=== PATIENT | male | born 1955 | race Caucasian/White ===

== ENCOUNTER 2021-01-26 17:33 | Inpatient (IN) | payer MEDICARE, OTHER ==
[~2021-01-26] VITALS: Ht 172.7 cm; Wt 98.1 kg
[~2021-01-26 17:33] MED LIST: ALDACTONE50 MG PO; AMLODIPINE-ATO1 EAC2 PO; ASPIRIN325 MG PO; CELECOXIB200 MG PO; CLONIDINE HCL0.1 MG PO; GABAPENTIN300 MG PO; OXYCODONE HCL5 MG PO
--- NOTE | 2021-01-26 19:54 | NUR ---
REPORT RECEIVED FROM Justino LUZ, WILL CONTINUE PLAN OF CARE WHEN PT. ARRIVES.
--- NOTE | 2021-01-26 21:37 | NUR ---
PT ARRIVED TO THE CCU AT 2001 VIA STRETCHER. PT WAS BROUGHT DOWN BY THE METAL ENGRAVER AND WAS ALERT AND ORIENTED WITH IV VANCOMYCIN INFUSING. PT ABLE TO SHUFFLE WALK OVER TO THE CCU BED AND GET ON WITHOUT MUCH ASSISTANCE. PT STATES HE IS FEELING WEAK/PAIN IN HIS RIGHT LEG AT THIS TIME. PT SITUATED ON BED DR. RICHMOND IN AT 2019 TO ASSESS PT AND UPDATE ON PLAN OF CARE. NEW ORDERS GIVEN TO STOP VANCOMYCIN AND HOLD ZOSYN. NEW ORDERS PLACED (SEE EMAR). ORDERED MEDICATIONS ADMINISTERED (SEE MAR). PRN OXYCODONE ADMINSITERED WELL PT STATED HE HAD R HIP/KNEE PAIN THAT WAS AT A 7/10. PT REPORTS NO FURTHER NEEDS AFTER BEING ADMITTED, PT PROVIDED WITH A SNACK AND ICE WATER. CALL LIGHT IN REACH, BED IN LOWEST POSITION IVF AND IV ABX INFUSING, WILL CONTINUE PLAN OF CARE.
--- NOTE | 2021-01-26 21:53 | NUR ---
THIS RN IN TO START SCHEDULED IV ABX AND START SECOND BOLUS OF LR (SEE MAR). PT LAYING IN BED AWAKE AND ALERT. PT REPORTS NO NEEDS AT THIS TIME WHEN ASKED, WILL CONTINUE PLAN OF CARE. CALL LIGHT IN REACH, BED IN LOWEST POSITION IVF AND IV ABX INFUSING ORDERED.
--- NOTE | 2021-01-26 22:21 | NUR ---
THIS RN IN TO CHECK ON PT. PT PLACED ON 2L O2 NC DUE TO SPO2 GOING DOWN TO THE 88-89%. PT STATED HE WAS FEELING A LITTLE OUT OF BREATH WHEN ASKED. PT SPO2 NOW MAINTAINED AT 95% ON 2L O2 NC. PT ALSO GIVEN AN INCENTIVE SPIROMETER AT THIS TIME AND INFORMED ON HOW TO USE IT. PT ABLE TO CORRECTLY USE I.S AFTERWARDS. PT REPORTS NO PAIN AT THIS TIME WHEN ASKED AND REPORTS NO FURTHER NEEDS, WILL CONTINUE PLAN OF CARE. IVF INFUSING ORDERED, BED IN LOWEST POSITION, CALL LIGHT WITHIN REACH.
--- NOTE | 2021-01-26 22:48 | NUR ---
THIS RN IN TO CHECK ON PT IV PUMP WAS ALARMING. SECOND BOLUS OF LR COMPLETE, MAINTENANCE IVF STARTED. PT ALERT AND ORIENTED ON 2L O2 NC AND DENIES HAVING ANY PAIN AT THIS TIME WHEN ASKED. PT REPORTS NO FURTHER NEEDS AT THIS TIME, WILL CONTINUE PLAN OF CARE. CALL LIGHT IN REACH, BED IN LOWEST POSITION, WILL CONTINUE PLAN OF CARE.
--- NOTE | 2021-01-27 00:25 | NUR ---
THIS RN IN TO ASSESS PT. PT LAYING IN BED SLEEPING BUT AWOKE EASILY. PT ON 2L O2 NC, SPO2 AT 94%. IVF INFUSING ORDERED. PT REPORTS NO SHORTNESS OF BREATH OR PAIN AT THIS TIME. PT VITALS TAKEN, ASSESSMENT COMPLETE. PT UNABLE TO VOID AT THIS TIME AND WAS BLADDER SCANNED. 276ML SCANNED AT THIS TIME. BLOOD PRESSURE MAP'S IN THE 60-[address] RICHMOND UPDATED ON PT. CONDITION AT THIS TIME VIA TELEPHONE. NEW ORDERS GIVEN. 500ML'S OF LR TO BE ADMINISTERED AT 500MLS/HR ALONG WITH CHANGING THE RATE OF MAINTENANCE LR IVF TO 150ML/HR AND TO CONTINUE TO MONITOR THE PT'S BP. LR NOW INFUSING AT 500ML/HR ORDERED, WILL CONTINUE PLAN OF CARE. PT ALERT AND ORIENTED LAYING IN BED, 2L O2 INFUSING, SPO2 AT 96%. CALL LIGHT IN REACH, BED IN LOWEST POSITION.
--- NOTE | 2021-01-27 01:38 | NUR ---
THIS RN IN TO CHECK ON PT DUE TO SPO2 IN THE 89%. PT LAYING IN BED ON 2L O2 NC. PT WOKE UP AND SPO2 INC TO 96%. PT REPORTS NO NEEDS AT THIS TIME, OXYGEN LEFT AT 2L O2, PT NOW ON MAINTENANCE IVF. PT DENIES PAIN OR SOB. KNEE REPOSITIONED UNDER PILLOW PER PT'S REQUEST AND PT GIVEN MORE WATER. PT REPORTS NO NEEDS AT THIS TIME, WILL CONTINUE PLAN OF CARE. CALL LIGHT IN REACH, BED IN LOWEST POSITION, IVF INFUSING ORDERED.
--- NOTE | 2021-01-27 02:12 | NUR ---
RESPONDED TO PT CALL LIGHT. PT STATED HE NEEDED TO VOID. PT ASSISTED WITH HIS R LEG. PT ABLE TO SIT DOWN ON SIDE OF BED AND USE URINAL. HR INCREASED TO THE 120'S, RR INCREASED TO THE 30'S, SPO2 MAINTAINED AT 96-98% ON 2L O2 NC. PT STATED HE FELT VERY WEAK AND TIRED DURING THIS TIME, PT ABLE TO VOID 125ML AND WAS HELPED BACK INTO BED. PT DENIES DIZZYNESS STATING HE FELT OUT OF BREATH DUE TO HOW WEAK/TIRED HE FELT. PT ASSISTED BACK INTO BED, R LEG ELEVATED WITH PILLOWS. PT BREATHING STILL LABORED. PT STATES IT IS IMPROVING. SPO2 AT 98%, HR 110, RR AT 28. LUNGS AUSCULTATED AND ARE CLEAR, BUT DIMINISHED IN LOWER RIGHT LOBE. PT DENIES PAIN AT THIS TIME. PT REPORTS NO FURTHER NEEDS AND STATES HE WILL TRY TO SETTLE BACK INTO BED AND REST. PT ASSISTED WITH REPOSITIONING IN BED. WILL CONTINUE PLAN OF CARE. CALL LIGHT IN REACH, BED IN LOWEST POSITION, IVF INFUSING ORDERED, PT ON 2L O2 NC.
--- NOTE | 2021-01-27 02:28 | NUR ---
THIS RN IN TO CHECK ON PT. PT AWAKE IN BED AND STATED HE HAD DROPPED HIS CALL LIGHT. CALL LIGHT PLACED BACK ON BED WITHIN REACH. TEMPERATURE ASSESSED PT STATED HE FELT CHILLS, TEMPERATURE WAS 99.6 F. PT ALSO REPORTED 6/10 PAIN IN HIS R KNEE AND GROIN AREA. PRN OXYCODONE AND TYLENOL ADMINISTERED AT THIS TIME. PT REPORTS HIS WORK OF BREATHING IS IMPROVING. SPO2 AT 98% ON 2L O2 NC. WOB STILL APPEARS LABORED AND IS TACHYPNIC AT 24/MIN. PT REPORTS NO FURTHER NEEDS AT THIS TIME, WILL CONTINUE PLAN OF CARE. CALL LIGHT IN REACH, BED IN LOWEST POSITION, IVF INFUSING ORDERED.
--- NOTE | 2021-01-27 03:29 | NUR ---
THIS RN IN TO CHECK ON PT AND PLACE O2 PROBE BACK ON. PT WAS AWAKE AND ALERT GETTING UP. PT STATED HE NEEDED TO VOID. PT ABLE TO GET OVER TO THE SIDE OF THE BED AND SIT UP. PT ASSISTED WITH GETTING BRIEFS OFF IN ORDER TO USE URINAL. PT HR UP TO THE 120'S, RESPIRATIONS INC TO 30'S, PT MAINTAINED SPO2 AT 96% WHILE ON 2L O2 NC. PT ABLE TO VOID AND WAS ASSISTED BACK INTO BED. PT DENIES LIGHTHEADEDNESS/DIZZYNESS WHEN ASKED AND STATES HE FELT BETTER THIS TIME WHEN COMPARED TO THE PREVIOUS VOID. PT REPORTS HIS PAIN HAS DECREASED TO 4/10, TEMPERATURE ASSESSED AND WAS 100.1, PT DENIES CHILLS OR FEELING WARM AT THIS TIME. NEW BAG IVF HUNG. PT REPORTS NO FURTHER NEEDS AT THIS TIME, WILL CONTINUE PLAN OF CARE. CALL LIGHT IN REACH, BED IN LOWEST POSITION, IVF INFUSING ORDERED.
--- NOTE | 2021-01-27 04:16 | NUR ---
RESPONDED TO PT CALL LIGHT. PT HAD KNOCKED HIS CUP OF WATER OVER WHILE REACHING FOR IT. PT'S WATER CUP REFILLED. PT REPORTS NO FURTHER NEEDS WHEN ASKED, WILL CONTINUE PLAN OF CARE. CALL LIGHT IN REACH, BED IN LOWEST POSITION, IVF INFUSING, PT ON 2L O2 NC, SPO2 AT 95%.
--- NOTE | 2021-01-27 05:11 | NUR ---
THIS RN IN TO CHECK ON PT. PT SLEEPING IN BED BUT AWOKE EASILY, TEMPERATURE ASSESSED AT THIS TIME AND WAS 99.3. PT DENIES PAIN, SOB, OR CHILLS. PT REPORTS NO FURTHER NEEDS AT THIS TIME, WILL CONTINUE PLAN OF CARE. CALL LIGHT IN REACH, BED IN LOWEST POSITION, IVF INFUSING ORDERED.
--- NOTE | 2021-01-27 06:13 | NUR ---
RESPONDED TO PT CALL LIGHT, PT ALERT AND ORIENTED LAYING IN BED. PT STATED THAT HE NEEDED TO VOID. PT ASSISTED TO THE SIDE OF THE BED TO VOID INTO A URINAL. PTS WORK OF BREATHING INCREASED ALONG WITH HIS HR WHICH WENT UP TO THE 110'S 120'S. PT DENIED DIZZYNESS AND STATED HE FELT WEAK. PT VOIDED INTO URINAL AND WAS ASSISTED BACK INTO BED. R LEG ELEVATED ON PILLOW. CELLULITS IS UNCHANGED ON R LEG, R KNEE POST OP SITE UNCHANGED WELL. PT MAINTAINED HIS SPO2 AT 94% ON 2L O2 NC. PT REPORTS NO FURTHER NEEDS AT THIS TIME AND WAS ASSISTED IN BEING REPOSITIONED ON THE BED. IVF INFUSING AT ORDERED RATE, PT ON 2L O2 NC, CALL LIGHT IN REACH, BED IN LOWEST POSITION. WILL CONTINUE PLAN OF CARE.
--- NOTE | 2021-01-27 06:32 | NUR ---
THIS RN IN TO CHECK ON PT. PT LAYING IN BED AWAKE AND ALERT WATCHING TV. ON 2L O2 NC, AND IVF INFUSING. PT ASKED ABOUT PAIN, PT STATED HE WAS STARTING TO HAVE PAIN IN HIS "RIGHT BUTT" AREA THIS TIME RATHER THAN HIS KNEE. TEMPERATURE ALSO ASSESSED AT THIS TIME AND WAS 99.2. PRN OXYCODONE AND TYLENOL ADMINISTERED AT THIS TIME. PT REPORTS NO FURTHER NEEDS WHEN ASKED, WILL CONTINUE PLAN OF CARE. CALL LIGHT IN REACH, BED IN LOWEST POSITION.
--- NOTE | 2021-01-27 07:25 | NUR ---
RECIEVED REPORT FROM LEATHER GOODS MAKER. PT WAS AWAKE LAYING IN BED. PT REPORTS NEEDING TO USE THE RESTROOM. ASSISTED PT UP TO BEDSIDE COMMODE. THEN ASSISTED PT TO CHAIR. LEGS ELEVATED. BLANKET GIVEN. PILLOW SUPORT UNDER LRE. CALL LIGHT WITHIN REACH. WILL CONTINUE TO MONTIOR CLOSELY.
--- NOTE | 2021-01-27 07:30 | NUR ---
PATIENT SHIFT REPORT RECIEVED FROM PURCHASING ENGINEER RN. PATIENT RESTING IN BED AT THIS TIME. PER REPORT PATIENT HAS BEEN TACHYCARDIC MOST OF THE NIGHT WITH SOME BLOOD PRESSURES IN THE 90'S SYSTOLIC AND MAP IN THE 60'S AT TIMES. PATIENT CALLS APPROPRIATELY. WILL CONTINUE TO CLOSELY MONITOR.
--- NOTE | 2021-01-27 08:00 | NUR ---
THIS RN IN TO PATIENT. PATIENT IS RESTING IN THE CHAIR NOW AT THIS TIME AFTER GETTING UP TO THE SIDE OF BED TO USE URINAL. PATIENTS BREATH SOUNDS CLEAR AND DIMINISHED IN LEFT LOWER LUNG. PATIENT REPORTS SOME SOB WITH ACTIVITY AND INCREASED PAIN. PATIENTS RIGHT LEG IS NOTED TO BE RED AROUND THE KNEE. A HEALED/SCABBED INCISION NOTED TO BE MIDLINE DOWN KNEE. SEVERAL SMALL WHITE PUTSTULES NOTED WITH OTHER SCABS NOTED AROUND THE SITE. PATIENTS RIGHT LEG IS WARM TO THE TOUCH SOME EDEMA NOTED IN THE LOWER PORTION OF THE EXTREMITY. PATIENT IS ALERT AND ORIENTED. PATIENT REPORTS HE PREFERS TO GO BY [facility].
--- NOTE | 2021-01-27 08:05 | NUR ---
ASSESSMENT COMPLETE. PT SITTING IN RECLINER AT BEDSIDE. REPORTS SHORTNESS OF BREATH WHEN EXERTED. STANDING CAUSES PAIN AND A SPIKE IN HIS HEARTRATE 120'S AND BEGINS SWEATING. PT EXPRESSED THAT ORAL PAIN MEDICATIONS DID NOT HELP AND PAIN WAS 8/10 AFTER MOVING TO CHAIR. 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 ADMINISTERED 4 MG ZOFRAN BEFORE 2MG IV MORPHINE. LUNGS SOUNDS CLEAR IN UPPER LOBES AND DIMINISTED IN LOWER LEFT LOBE. RLE RED AND WARM TO TOUCH. OUTLINED THE RED AREAS WITH SIGNS OF PUTSTULES CENTRALIZED AROUND THE KNEE. PT REPORTS THAT HE TAKES HOME BLOOD PRESSURE MEDICATIONS AND IS NOT USED TO HAVING BLOOD PRESSURES IN THE 80'S AND 90'S. PT IS ON THE 2L 02 NC. O2 SATS MID 90'S ON OCCASSION DROPS TO LOW 90'S WHEN UP AND MOVING ABOUT. CALL LIGHT WITHIN REACH. WILL CONTINUE TO CLOSELY MONITOR FOR ANY CHANGES.
--- NOTE | 2021-01-27 08:30 | NUR ---
PATIENT COMPLAINING OF PAIN THAT CONTINUES AROUND 8/10 IN HIS LEG WITH NO RELIEF FROM PO PAIN MEDICATIONS THIS AM. GAVE 2MG OF MORPHINE PER ORDERS AND ZOFRAN BECAUSE PATIENT STATES HE HAS HAD NAUSEA IN THE PAST WITH MORPHINE ADMINISTRATION AND HAD TO TAKE NAUSEA MEDICATIONS WITH IT. PATIENTS BREAKFAST ORDERED. PATIENT REPORTS PAIN IS IMPROVED AFTER IV PAIN MEDICATION. ICE PACK PLACED FOR COMFORT. NO OTHER NEEDS AT THIS TIME. WILL CONTINUE TO CLOSELY MONITOR.
--- NOTE | 2021-01-27 09:45 | NUR ---
THIS RN IN WITH MD RICHMOND TO SEE PATIENT. UPDATED ON EPISODES OF OF SOB WITH EXERTION AND PATIENT ON 2L NC. ALSO, UPDATED ON INCISION SITE AND REDDNESS AROUND SITE. SEE NEW ORDERS. NO OTHER NEEDS AT THIS TIME. WILL CONTINUE TO CLOSELY MONITOR.
--- NOTE | 2021-01-27 10:10 | NUR ---
ADMINISTERED LASIX PER NEW NOV ORDER. BEGAN SODIUM BICARB. GAVE PT A SECOND PILLOW UNDER HIS LEG. PATIENT TOLERATED WELL. PAIN IS NOW REPORTED T 2/10 WHEN SITTING IN CHAIR WITH LEG ELEVATED. PT REPORTED NO SHORTNESS OF BREATH WHEN GETTING UP TO USE THE BEDSIDE COMMODE. NO OTHER CONCERNS AT THIS TIME. CALL LIGHT WITHIN REACH. WILL CONTINUE TO MONITOR CLOSELY.
--- NOTE | 2021-01-27 11:23 | NUR ---
STUDENT NURSE INTO CHECK PT. PT WAS ON THE COMMODE HEART RATE ELEVATED 120'S AND A LITTLE SHORT OF BREATH. PT INFORMED THAT HE SHOULD USE TO THE CALL LIGHT WHEN HE NEEDS ASSISTANCE TO USE THE RESTROOM. ASSISTED PT TO BED. IMAGING IN THE ROOM TO DO ECHO. PT'S JUST ARRIVED AND IS AT BED JOANNA WITH THE PT. NO CONCERNS AT THIS TIME. WILL CONTINUE TO MONITOR CLOSELY FOR CHANGES.
--- NOTE | 2021-01-27 12:00 | NUR ---
PT LIVES IN [place] WITH HIS , PARRIS. PT HAD SURGERY 4 WEEKS AND STATES HE HAS CELLULITIS. HE IS UNABLE TO WALK WITH HIS CELLULITI S. STATES HE HAS A RAMP, WC AND, A WALKER. HIS PCP IS MEE ZHAO AND HE USES [facility] IN [place] FOR HIS PHARMACY. WILL ASSIST NEEDED. PT PLANS ON DC TO HOME WHEN CLEARED MEDICALLY.
[2021-01-27] MEDS ORDERED: AMLODIPINE BESYL5 MG PO (12:37)
[2021-01-27] MEDS ORDERED: BENAZEPRIL HCL40 MG PO (12:37)
--- NOTE | 2021-01-27 13:11 | NUR ---
PT DONE WITH ECHO AND REQUESTED TO USE THE RESTROOM. ASSISTED PT TO BEDSIDE COMMODE. PT OXYGEN TOLERATED WELL IN THE UPPER 90'S. PT REPORTS A LARGE AMOUNT OF PAIN AND SCORE OF 8/10. ADMINISTERED ORAL PAIN MEDICATIONS. ASSISTED PT TO SIT IN CHAIR SO HE COULD SIT UP. PT REPORTS THAT "HIS SCIATICA HURTS" AND REQUESTED TO SIT ON A PILLOW IN THE CHAIR. ALSO PLACED A PILLOW BEHIND IHS BACK. FIXED ALL THE CORDS THAT WERE TANGLED AND RETAPED THE IV ON HIS RT HAND. PER PT REQUEST TO EAT LUNCH WITHOUT THE NASAL CANULA THE OXGEN WAS REMOVED. wILL CLOSELY MONITOR OXYGEN CLOSELY FOR ANY HYPOXIA. PT SITTING IN CHAIR EATING LUNCH WITH AT CHAIR SIDE.
--- NOTE | 2021-01-27 14:00 | NUR ---
ASSESSMENT COMPLETE. PT ABLE TO MAINTAIN OXYGEN ON ROOM AIR WHEN AWAKE. PT IS URINATING MORE FREQUENTLY AND USES THE BEDSIDE COMMODE WITHOUT COMPLCATIONS AND TOLERATES WELL. HEART RATE STILL TACHYCARDIA AND IS IN A FIRST DEGREE AV BLOCK. PT HAS FINE CRACKLES IN BOTH LOWER LOBES OF HIS LUNGS. PT SITTING IN CHAIR AND REPORTS NAUSEA AND WAS GIVEN ZOFRAN AND REPORTS FEELING BETTER. GAVE PT OYSTER CRACKERS AND TEA. PT IN CHAIR WITH IN THE ROOM. NO CONCERNS AT THIS TIME. WILL CONTINUE TO MONITOR CLOSELY. CALL LIGHT WITHIN REACH.
--- NOTE | 2021-01-27 15:08 | NUR ---
PT RESTING IN THE CHAIR WITH LEGS ELEVATED. AT CHAIR SIDE. PT IS SLEEPING WITH EYES CLOSES. PT MAINTAING OXYGEN AT 94% WITH ROOM AIR. HEART RATE IS IN THE LOW 100'S. JUST FINISHED WITH PHYSICAL THERAPY. NO CONCERNS AT THIS TIME. Zenia CONTINUE TO MONITOR CLOSELY. CALL LIGHT WITHIN REACH.
--- NOTE | 2021-01-27 15:13 | NUR ---
MED REC COMPLETE
--- NOTE | 2021-01-27 17:02 | NUR ---
PT VISITOR JUST STTEPPED OUT FOR A BRIEF MOMENT. ASSISTED PT UP TO THE BEDSIDE COMMODE. PT HEART RATE BECAME ELEVATED AND WAS IN THE 110'S. OXYGEN MAINTAINED IN THE MID 90'S. ASSISTED PT BACK TO CHAIR. PT REPORTS NAUSEA MEDICINE HELPED AND SNACKING ON CRACKER. PT REQUESTED HOT TEA. PT SITTING IN BED DAUGHTER JUST CAME IN ROOM. CALL LIGHT WITHIN REACH. NO CONCERNS OR QUESTIONS AT THIS TIME. WILL CONTINUE TO MONITOR CLOSELY FOR CHANGES.
--- NOTE | 2021-01-27 17:09 | NUR ---
ANSWERED PT CALL LIGHT. PT REQUESTED TO GET INTO BED. ASSISTED PT INTO BED. PT IS WEAK ON THE RIGHT SIDE AND IS A STAND BY ASSIST. PT USED A WALKER AND IS ABLE TO ADJUST HIMSELF IN BED. PLACED A PILLOW UNDER THE RIGHT SIDE OF PT. PLACED OXYGEN BACK ON PT WHILE SLEEP. ASLEEP PT OXYGEN SATS DROP TO UPPER 80'S TO LOW 90'S. PLACED PT ON 1.5L OXYGEN NASAL CANULA. WHILE AWAKE PT MAINTAINS OXYGEN SATURATION OF MID TO UPPER 90'S ON ROOM AIR. TRANSFER TOLERATED WELL. PT LAYING IN BED WITH EYES CLOSED HEAD OF BED ELEVATED. PILLOW UDDER RIGHT SIDE AND RIGHT LEG. NO OTHER CONCERNS AT THIS TIME. CALL LIGHT WITHIN REACH. WILL CONTINUE TO MONITOR CLOSELY.
--- NOTE | 2021-01-27 17:50 | NUR ---
ANSWER PT CALL LIGHT. PT REUQESTED HELP TO USE THE BEDSIDE COMMODE. PT TOLERATED WELL WITHOUT COMPLICATIONS. ASSISTED PT BACK TO BED. PT HAS PILLOW UNDER RIGHT SIDE. PT REPORTED IT HELPS WITH SCIATICA SINCE ITS HARD TO ROLL OVER." PT DRANK CHAMOMILE TEA IN HOPES HE WILL BE ABLE TO RELAX THIS EVENING. PT RESTING IN BED. HEAD ELEVATED. GLASSES ON. CALL LIGHT WITHIN REACH. NO OTHER CONCERNS AT THIS TIME. WILL CONTINUE TO MONITOR CLOSELY.
--- NOTE | 2021-01-27 18:50 | NUR ---
ANSWERED CALL LIGHT. PT REQUESTED HELP UP TO USE THE BEDSIDE COMMODE. ASSISTED PT BACK TO BED. GAVE PT A WARM BLANKET. OXYGEN MAINTAINED AT UP 90'S UP MOVING AND HEART RATE WAS IN MED 110'S ON MOVING. PT CALLED AND PT TALKING ON THE PHONE. NO OTHER CONCERNS AT THIS TIME. CALL LIGHT WITHIN REACH. WILL CONTINUE TO MONITOR CLOSELY.
--- NOTE | 2021-01-27 19:41 | NUR ---
REPORT RECEIVED FROM DAY SHIFT, PT RESTING IN BED WITH EYES CLOSED. RR 22, HR 110.
--- NOTE | 2021-01-27 21:30 | NUR ---
HS MEDS GIVEN, OXYCODONE GIVEN FOR PAIN.
--- NOTE | 2021-01-27 22:07 | NUR ---
IN TO HELP PT UP TO BSC TO VOID THEN BACK TO BED. HR UP TO 120'S WHILE UP. TEMP RECHECKED IS 99.5.
--- NOTE | 2021-01-28 00:05 | NUR ---
PT CALLS TO USE BSC TO VOID, ASSESSMENT DONE. BACK TO BED. DENIES NEED FOR PAIN MEDICATION. LUNGS CLEAR/DIM IN BASES.
--- NOTE | 2021-01-28 02:15 | NUR ---
PT CALLS TO USE BSC. UP TO COMMODE TO VOID AND BACK TO BED. PT SEEMS TO BE GETTING MORE SOB EACH TIME HE GETS UP, WITH RECOVERY TIME APPROX 5 MINUTES ONCE HES BACK IN BED. HR ALSO WENT UP TO 130'S WHILE UP AND TOOK LONGER TO GO BACK DOWN TO 120.
--- NOTE | 2021-01-28 03:22 | NUR ---
PT CALLS FOR NAUSEA MEDICINE. 4MG IV ZOFRAN GIVEN. RESTING HR 117.
--- NOTE | 2021-01-28 04:01 | NUR ---
PT CALLS TO GET UP TO BSC THEN TO CHAIR. ASSESSMENT DONE. PT TOLERATED ACTIVITY BETTER THIS TIME, HR REMAINED IN 115'S, NOT SOB THIS TIME. DENIES NEED FOR PAIN MEDS, STATES NAUSEA IS BETTER. CALL LIGHT IN LAP.
--- NOTE | 2021-01-28 05:39 | NUR ---
UP TO BSC, BACK TO CHAIR. HR LOWER THAN LAST TIME HE WAS UP, NOW 113. STILL SLIGHTLY SOB WHEN UP. REQUESTS PAIN MEDICATION, 5MG OXYCODONE GIVEN.
--- NOTE | 2021-01-28 07:27 | NUR ---
CALL TO DR RICHMOND TO DISCUSS PAIN/NAUSEA. ORDER GIVEN FOR PHENERGAN.
--- NOTE | 2021-01-28 07:30 | NUR ---
PATIENT SHIFT REPORT RECIEVED FROM [employer] MAINTENANCE MANAGER RN. PER REPORT PATIENT IS FEELING UNWELL THIS AM AND EXHAUSTED. PATIENT HAS BEEN MORE TACHYCARDIC THIS AM, NUASEATED, AND PAINFUL IN HIS LEG. CALL LIGHT IN REACH AND PATIENT CALLS APPROPRIATELY. HALIE ADAIR CALLED MD FOR PRN NAUSEA MEDICATIONS.
--- NOTE | 2021-01-28 08:30 | NUR ---
PATIENT REPORTS FEELING UNWELL THIS AM. THIS RN IN TO DO ASSESSMENT AND NOTED PATIENTS RIGHT LEG CONTINUES TO BE RED, SWOLLEN, WARM, AND PAINFUL. PATIENT HAS A RED SWOLLEN RASH ACROSS HIS ABD AND NOTED ON UPPER ARMS. PATIENT REPORTS IT IS ITCHY ACROSS HIS ABD. PATIENTS TEMP WAS NOTED TO BE 101.2 ORALLY. MD RICHMOND NOTIFIED. BLOOD CULTURES ORDERED. NO NEW ORDERS AT THIS TIME. WILL CONTINUE TO CLOSELY MONITOR.
--- NOTE | 2021-01-28 09:17 | NUR ---
IN WITH PT. TEMPERATURE REASSESSED AFTER GIVEN TYLENOL. TEMPERATURE 99.2. PLAN OF CARE IS TO CONTINUE WITH ANTIBIOTIC TREATMENT. PT HAS BEEN ON ANTIBIOTICS FOR 48 HOURS. PT REQUESTED TO USE THE BEDSIDE COMMODE. NURSE GOT PT A DIFFERENT CHAIR TO SEE IF THAT WOULD HELP WITH HIS SCIATICA. ASSISTED PT TO CHAIR AND IS CURRENTLY EATING BREAKFAST. PT REPORTS DRY MOUTH. ICE CHIPS OFFERED TO PT. NO OTHER CONCERNS. CALL LIGHT WITHIN REACH. WILL CONTINUE TO MONITOR CLOSELY.
--- NOTE | 2021-01-28 09:50 | NUR ---
RECIEVED REPORT FROM PROCESS IMPROVEMENT ENGINEER NURSE. ANSWERED CALL LIGHT AND PATIENT REQUESTED ASSISTENCE IN GOING TO THE BEDSIDE COMMODE AND GETTING INTO BED. PT REPORTS THE CHAIR IS UNCOMFORTABLE AND BOTHERS HIS SCIATIC NERVE. PT REPORTS "BEING NAUSEOUS AND STRUGGLES TO PUT ANY PRESSURE ON HIS RIGHT LEG. PT RESTING IN BED. PILLOWS UNDER THE RIGHT SIDE. EXTRA PILLOW UNDER THE RIGHT LEG. HEAD OF BED IS ELEVATED.PT OXYGEN SATS IN THE UPPER 90'S AND TOLERATES MOVEMENT WITH LITTLE AMOUNTS OF SHORTNESS OF BREATH. CALL LIGHT WITHIN REACH. WILL CONTINUE TO MONITOR CLOSELY FOR ANY CHANGES.
--- NOTE | 2021-01-28 12:15 | NUR ---
PATIENT BACK IN THE CHAIR AT THIS TIME. GAVE PRN PAIN EDICATION AND NAUSEA MEDICATION. PHYSICAL THERAPY WILL COME BACK TO SEE PATIENT AFTER ABOUT 1 HOUR FROM PAIN MEDICATION ADMINISTRATION. PATIENT AGREEABLE TO PLAN OF CARE. NO OTHER NEEDS AT THIS TIME. WILL CONTINUE TO CLOSELY MONITOR.
--- NOTE | 2021-01-28 15:10 | NUR ---
CALLED MD TO UPDATE THAT PATIENT SPIKED A FEVER OF 102.2 ORALLY. NO NEW ORDERS EXCEPT TO GO AHEAD AND TREAT WITH TYLENOL. STAFF DO NOT NEED TO DO BLOOD CULTURES AT THIS TIME SINCE THEY WERE DONE THIS AM.
--- NOTE | 2021-01-28 15:20 | NUR ---
TYLENOL GIVEN FOR FEVER. PATIENT RESTING WITH HIS DAUGHTER AT THE BEDSIDE. UPDATED ON PLAN OF CARE. NO OTHER QUESTIONS AT THIS TIME. WILL CONTINUE TO CLOSELY MONITOR.
--- NOTE | 2021-01-28 15:38 | NUR ---
IN TO GIVE PT ANTIOBIOTIS. PT REPORTS "SOME OF THE ITCHING HAS SUBSIDED BUT HIS STOMACH IS STILL ITCHY." DAUGHTER IS IN THE ROOM WITH HIM. PT FACE APPEARS TO BE FLUSHED STILL AND TEMPERATURE RECHECKED AND IS 102.2. ONLY RECIEVED TYLENOL 30 MINUTES AGO. WILL CONTINUE TO CLOSELY MONITOR TEMPERATURES. TELESALES PROFESSIONAL FROM [employer] IS ALSO AT HIS SIDE AND TALKING ABOUT SCRIPTURE. PT IS AWAKE AND ORIENTED AND IS SMILING AND LAUGHING. PT SITING IN CHAIR WITH LEGS ELEVATED. CALL LIGHT WITHIN REACH. WILL CONTINUE TO MONITOR CLOSELY.
--- NOTE | 2021-01-28 16:17 | NUR ---
PT ASSESSMENT COMPLETE. PT IS IN VISITING WITH DAUGHTER AND THE [employer] OF THE [facility] IN [place]. PT HAD SPIKED A TEMPERATURE AGAIN TODAY AND WAS RECHECKING. TEPERATURE HAD DROPPED TO 100.0. RASH ON PATIENTS STOMACH IS NOTICIABLE ON THE SIDES. PATIENT REPORTS THAT THOSE AREAS HAVE ITCHED SO THE REDNESS MAY HAVE BEEN FROM HIM. HE IS ALERT AND ORIENTED AND TALKING. HIS OXYGEN SATURATIONS HAVE NOT DROPPING BELOW MID 90'S WHILE TALKING. DENIES SHORTNES OF BREATH. PAIN IS CURRENTLY AT A 2/10 AND DENIES ANY NEEDS AT THIS TIME. WILL CONTINUE TO MONITOR CLOSELY FOR CHANGES. CALL LIGHT WITHIN REACH.
--- NOTE | 2021-01-28 17:53 | NUR ---
PT RECIEVED DINNER AND NURSE STUDENT BROUGHT TO PT. RECHECKED THE PT TEMPERATURE 99.1. SLOWLY TRENDING DOWNWARD, SHOULD BE MONITORED. PT IS AT BEDSIDE AND REPORTS THAT SHE WILL BE SPENDING THE NIGHT WITH HER . REPLACED THE ICE IN THE [employer] MACHINE AND REPLACED ON THE PATIENTS RIGHT KNEE. PT DENIES SHORTNESS OF BREATH. PT SITTING IN THE CHAIR WITH LEGS ELEVATED. ICE PACK REPLACED UNDER HIS RIGHT BOTTOM AND PILLOW UNDER THE RIGHT LEG. NO OTHER CONCERNS AT THIS TIME. CALL LIGHT WITHIN REACH. WILL CONTINUE TO MONITOR CLOSELY.
--- NOTE | 2021-01-28 18:50 | NUR ---
ASSESSMENT COMPLETE. PT HAS BEEN ON ROOM AIR AND MAINTAINS OXYGEN SATS MID TO UPPER 90S WHEN GETTING UP TO USE THE COMMODE. ASSISTED PT IN USING BEDSIDE COMMODE. PT BEDDING WAS STRIPPED DOWN AND CHANGED. PT HAD A BED BATH WHILE SITTING IN THE CHAIR. PT TOLERATED WELL. WHEN PT ARRIVED PT USED WALKER WITH STAND BY ASIST INTO THE RESTROOM TO CHANGE HIS UNDER PANTS. PT REPORTS "STOMACH AND LOWER LEG BEING ITCHY." REMINDED PT TO USE SPIROMETRY AT WHICH HE WAS ABLE TO ET THE METER TO 1750. RLE IS TIGHT AND HEATED TO TOUCH AND KNEE AREA IS VERY SENSITIVE. WHILE PT IS UP MOVING THE HEART RATE WAS IN THE 120'S AND OXYGEN IN THE MID TO UPPER 90'S. ORDERED PT LUNCH. ASSITED PT BACK TO CHAIR. IS IN THE ROOM WITH PT. PT SITTING IN CAHIR WITH LEGS ELEVATED AND ICE PACK UNDER HIS BOTTOM TO HELP WITH SCIATICA. NO OTHER CONCERNS AT THIS TIME. WILL CONTINUE TO MONITOR CLOSELY.
--- NOTE | 2021-01-28 19:01 | NUR ---
CALL LIGHT ANSWERED. PT REQUESTED HELP GETTING TO THE COMMODE AND WOULD LIKE TO GET BACK INTO BED WHEN HE IS DONE. PT TOLERATED MOVE WELL. PILLOW UNDER THE PATIENT'S BACK AND NO PILLOW UNDER HIS LEG. CRYOCUFF REPLACED ON THE RIGHT LEG AND CIRCUMFIRENCE OF CALF AND KNEE HAVE BEEN PARKED. PT REPORTS GETTING COLD CHILD. TAKING TEMPERATURE 99.4. WILL CONTINUE TO MONITOR CLOSELY FOR CHANGES. CALL LIGHT WITHIN REACH.
--- NOTE | 2021-01-28 19:30 | NUR ---
SHIFT REPORT RECIEVED. PT TEMP IS CURRENTLY 101.0; PT IS DROWSY ALTHOUGH RESPONSIVE AND APPROPRIATE. 500MG PO TYLENOL ADMNISTERED. PT'S IS IN ROOM AT BEDSIDE.
--- NOTE | 2021-01-28 20:06 | NUR ---
PT HAD AN EPSIODE OF DESATURATION TO 78% PER MONITOR. 2L NC APPLIED. PT RECOVERED TO 97-98%. WILL CONTINUE TO MONITOR.
--- NOTE | 2021-01-28 21:20 | NUR ---
CALL IN TO DR DONOHUE. TEMP CONTINUES TO BE ELEVATED. CURRENT ORAL TEMP IS 102F. PT APPEARS FLUSHED AND HAS OCCASIONAL SHIVERING. NO NEW ORDERS; WILL CONTINUE TO MONITOR.
--- NOTE | 2021-01-28 22:01 | NUR ---
IN ROOM TO HANG CLINDAMYCIN. PT WAS SLEEPING BUT AWAKES TO STAFF IN ROOM. TEMP CURRENTLY 101.9F. PT'S IN RECLINER AT BEDSIDE. FRESH ICE WATER PROVIDED FOR BOTH PT AND HIS . CALL LIGHT WITHIN REACH.
--- NOTE | 2021-01-28 23:45 | NUR ---
CALL LIGHT ANSWERED. SBA TO BSC; 300ML CLEAR YELLOW URINE NOTED. PT REPORTS PAIN IS IMPROVED. AXILLARY TEMP 99.7F. LUNG SOUNDS CLEAR. UNCHANGED MARKED AREAS ON RT LEG/ABD. DENIES NEEDS AT THIS TIME. CALL LIGHT WITHIN REACH. PT'S IN ROOM
--- NOTE | 2021-01-29 02:01 | NUR ---
CHECKED ON PT. PT IS AWAKE; ORAL TEMP CURRENTLY 101.7F. 500MG PRN TYLENOL ADMINISTERED ALONG WITH 5MG OXYCODONE PER PT REQUEST. PT STATES THAT HE FEELS HE DOESNT NEED ZOFRAN AT THIS TIME (ALONG WITH OXYCODONE). CALL LIGHT WITHIN REACH. NO FURTHER NEEDS AT THIS TIME.
--- NOTE | 2021-01-29 03:30 | NUR ---
CHECKED ON PT; PT APPEARS TO BE SLEEPING; EYES CLOSED, EVEN BREATHING NOTED. NO APPARENT SIGNS OF DISTRESS.
--- NOTE | 2021-01-29 04:32 | NUR ---
CALL LIGHT ANSWERED. SBA TO BSC. 400ML CLEAR YELLOW URINE. LUNG SOUNDS CLEAR, RT LEG REDNESS WITHIN MARKED BOUNDARIES, CMS INTACT, VSS. PT IS MORE ALERT AND STATES THAT HE FEELS "SO MUCH BETTER THAN LAST NIGHT". PAIN IN RT LEG IS WELL CONTROLLED WITH PRN MEDS HOWEVER MOBILITY IN RT LEG REMAINS REDUCED. PT DENIES FURTHER NEEDS AT THIS TIME. CALL LIGHT WITHIN REACH.
--- NOTE | 2021-01-29 05:57 | NUR ---
CHECKED ON PT D/T O2 SAT 85%. PT HAD REMOVED NC FROM NOSE. PT RECOVERED IMMEDIATELY WHEN NC WAS REPLACED. SBA TO BSC. PT'S WORK OF BREATHING INCREASED UPON RETURN TO BED HOWEVER SPO2 96% ON 2LNC. CURRENT ORAL TEMP 101.0F 0600 [address] HUNG. CALL LIGHT WITHIN REACH. NO FURTHER NEEDS AT THIS TIME
--- NOTE | 2021-01-29 07:24 | NUR ---
RECIEVED REPORT FROM THE UNDERCOATER. PT IS AWAKE AND ALERT SITTING IN BED. HEAD OF BED ELEVATED. IS AT THE BEDSIDE. PT REQUESTS COFFEE. PT REPORTS NO PAIN AT THIS TIME AND HE SLEPT WELL. NO OTHER CONCERNS AT THIS TIME. CALL LIGHT WITHIN REACH. WILL CONTINUE TO MONITOR.
--- NOTE | 2021-01-29 07:45 | NUR ---
PATIENT SHIFT REPORT RECIEVED FROM ATTACHER RN. PATIENT RESTING IN BED AT THIS TIME. PATIENT CALLS APPROPRIATELY. WILL CONTINUE TO CLOSELY MONITOR.
--- NOTE | 2021-01-29 08:15 | NUR ---
MD DONOHUE IN TO SEE PATIENT. PATIENT RESTING IN BED. PATIENT STATES "I FEEL BETTER THIS MORNING" PATIENTS FEVER IS GONE AT THIS TIME. PATIENTS KNEE CONTINUES TO BE RED BUT REMAINS WITHIN OUTLINED AREAS. PATIENTS RIGHT LEG IS WARM TO THE TOUCH. MD DONOHUE SPOKE WITH PATIENT ABOUT PLAN OF CARE. NO FURTHER QUESTIONS AT THIS TIME. WILL ENCOURAGE PATIENT TO GET UP AND START MONVING FOR THE DAY. WILL CONTINUE TO CLOSELY MONITOR.
--- NOTE | 2021-01-29 08:17 | NUR ---
ASSESSMENT COMPLETE. DOCTOR IN TO SEE PT. PT REPORTS "HAVING A GOOD NIGHT REST A FEELS GOOD THIS MORNING." ASSISTED PT UP TO THE RESTROOM WITH WALKER AND STAND BY ASSIST. PT HAD A BEDBATH WASHED HIS FACE, BRUSHED, HIS TEETH, AND CHANGED GOWN. TOLERATED MOVEMENTS WELL. SOME SHORTNESS OF BREATH AND TACHYNEA. MEASURED RIGHT LEG. CALF IS AT 40 CM CIRCUMFERNCE AND KNEE IS AT 46.5 CM AND REDUCTION OF 1 CM FROM YESTERDAY. PT RASH ON STOMACH IS VERY PROMANANT AND PT REPORTS IT BEING ITCHY THIS MORNING. PT EPORTS NO BOWEL MOVEMENT IN TWO DAYS BUT HAS PASSED GAS. REMOVED NASAL CANULA AND PT OXYGEN AT 98% ON ROOM AIR. REPLACED PT LEADS FOR TELEMETRY WHILE GETTING CHANGED FOR THE DAY. TEMPERATURE WAS TAKEN DURING ASSESSMENT AND DOES NOT HAVE A FEVER 98.3. WILL CONTINUE TO MONITOR FOR SIGNS OF FEVER. BREAKFAST HAS ALREADY BEEN ORDER AND IS AT BEDSIDE WITH PT. PT IN CHAIR WITH LEGS ELEVATED. BEDDING CHANGED. NO OTHER CONCERNS AT THIS TIME. CALL LIGHT WITHIN REACH. WILL MONITOR PT CLOSELY FOR CHANGE.
--- NOTE | 2021-01-29 10:51 | NUR ---
ASSSISTED PT TO THE RESTROOM. PT TOLERATED WELL. PRAMOD WESLEY IN TO SEE PT. INFORM PT SHE WOULD LIKE TO TAKE SOME FLUID OFF OF THE PT KNEE TO SEND OFF FOR TESTING. PT RECIEVED NEW MEDCATION AND PRN MORPHINE A PROPHALATIC FOR PAIN. PRAMOD WESLEY ASPIRATED 130 ML FROM THE RIGHT KNEE. PT REPORTS NO COMPLICATION JUST THE FEELING OF PRESSURE. PT IS ABLE TO MOVE KNEE MORE SINCE THE REMOVAL OF FLUID. PT HAS A BAND AIDS ON THE RIGHT OUTER PORTION OF THE KNEE. PT HAS NO FEVER AT THIS TIME. TEMPERATURE IS 98.6. PT IS SITTING IN CHAIR WITH LEGS ELVATED. WILL CONTINUE TO MONITOR CLOSEY FOR CHANGES. CALL LIGHT WITHIN REACH. NO CONCERNS AT THIS TIME.
--- NOTE | 2021-01-29 12:19 | NUR ---
ANSWERED CALL LIGHT. PT REQUESTED ASSISTANCE TO THE RESTROOM. STA WITH WALKER TO THE RESTROOM. PHYSICAL THERAPY CAME IN WHILE PT IN REST ROOM. PT WORKING WITH PHYSICAL THERAPY WALKING. TOLERATING WELL. NO CONCERNS AT THIS TIME.
--- NOTE | 2021-01-29 12:36 | NUR ---
PT ASSESSMENT COMPLETE. PT JUST FINISHED WITH PHYSICAL THERAPY AND WAS SITTING IN CHAIR WITH LEGS ELEVATED. JUST LEFT AND SAID DAUGHTER WILL BE COMING UP. PT WALKED A TOTAL OF 200 FT AND WHEN OXYGEN LEVELS WERE CHECKED HE WAS AT 97%. HEART RATE HAS NOT BECOME ELEVATED MORE ON EXTERTION AND STAY IN THE LOW 100'S TO MID 90'S. PT REPORTS "FEELING MUCH BETTER TODAY AND CAN MOVE LEG MORE WITH THE FLUID GONE." PT HAS NOT HAD A BOWEL MOVEMENT IN TWO DAYS AND PT REPORTS PASSING GAS. BLOTCHY RED RASH APPEARS TO REMAIN ON STOMACH. PT REPORTS THAT IS DOES NOT ITCH. KNEE IS STILL RED AND SWOLLEN AND WAM TO THE TOUCH. PT DOES NOT REPORT ANY WORSE PAIN IN THE LEG. PT EATING LUNCH. NO OTHER CONCERNS AT THIS TIME. CALL LIGHT WITHIN REACH. WILL CONTINUE TO MONITOR CLOSELY.
--- NOTE | 2021-01-29 14:02 | NUR ---
PT SITTING IN CHAIR WITH LEG ELEVATED. DAUGHTER CAME INTO ROOM AND SITTING BY CHAIR. CRYOCUFF REPLACED AND PILLOW READJUSTED. ICE WATER REPLACED. PT DOES NOT HAVE FEVER TEMPERATURE AT 98.5. ASSISTED PT TO USE RESTROOM AND BACK TO CHAIR WITH SBA WITH WALKER. NO COMPLICATIONS OR CONCERNS AT THIS TIME. CALL LIGHT WITHIN REACH. WILL CONTINUE TO MONITOR CLOSELY.
--- NOTE | 2021-01-29 14:59 | NUR ---
NURSE IN TO START PT ANTIBIOTICS. PT SON IN LAW IN VISITING. PT REPORTS PAIN 11/09. OFFERED PAIN MEDICINE. PT REQUESTED ONE OXYCODONE TO GET ON BOARD BEFORE HE GETS UP TO USE THE BATHROOM. TOOK PILLOW OUT FROM BEHIND PT LEG TO HAVE IT STRETCH OUT A LITTLE BIT. PT SAYS" HE FEELS PRETTY GOOD WITH NO NEEDS" CALL LIGHT WITHIN REACH. NO CONCERNS AT THIS TIME. WILL CONTINUE TO MONITOR CLOSELY.
--- NOTE | 2021-01-29 17:17 | NUR ---
BROUGHT PT DINNER. ASSISTED PT WITH PUT LEG OF CHAIR DOWN SO HE COULD SIT UP AND EAT. IS AT SIDE WITH A GUEST TRY. PT REPORTS "NO SHORTNESS OF BREATH OR NAUSEOUSNESS." OXYGEN LEVELS AT 97% ON ROOM AIR, HEARTS RATE IN THE LOW 90'S. PT DENIES THE NEEDS FOR PAIN MEDICATIONS. PAIN RATED AT 2/10. NO OTHER CONCERNS AT THIS TIME. CALL LIGHT WITHIN REACH. WILL CONTINUE TO MONITOR CLOSELY.
--- NOTE | 2021-01-29 18:39 | NUR ---
IN TO ASSIST PT. IV IN LEFT HAND WAS LEAKING. REDRESSED IV AND FLUSHED WITHOUT COMPLICATION. PT REQUESTED ASSISTENCE TO THE RESTROOM. WHEN FINISHED PT DID NIGHT ROUTINE WASHED FACE, SHAVED, BRUSHED TEETH. ASSISTED PT BACK TO BED WITH STAND BY ASSIST WITH WALKER TO BED. PT LAYING IN BED WITH HEAD OF BED ELEVATED TO 30 DEGREES. PT HAS A RASH ON HIS ARMS STOMACH AND CHEST. BLOOD PRESSURE CUFF IS AT THE BED SIDE. RASH ON UPPER ARMS ARE INTCHING AND RED. BLOOD PRESSURES HAVE BEEN IN THE 120 TO 120 WITH MAP IN THE 70 AND 80 TODAY. NO SPEIKES IN FVER AND PATIENT IS HANDLING MORE MOVEMENT WITHOUT COMPLICATION OR OXYGEN DROPS. PT REQUESTED TO HAVE CRYOCUFF OFF FOR A LITTLE WHILE BECAUSE HE GETS COLD WILL IT ON AND MAY NOT SLEEP WELL WITH IT ON. CRYOCUFF AT BED SIDE. PILLOW UNDER HIS FOOT BUT NOT UNDER THE KNEE. NO OTHER QUESTIONS OR CONCERNS AT THIS TIME. PT WILL BE NPO AT MIDNIGHT. CALL LIGHT WITHIN REACH. WILL CONTINUE TO MONITOR CLOSELY.
--- NOTE | 2021-01-29 19:10 | NUR ---
REPORT GIVEN TO [employer] TESTER WATER RNS. UPDATED ON PLAN OF CARE FOR NPO AT MIDNIGHT AND SURGERY TOMORROW AFTERNOON. INSTRUCTIONS TO HOLD LOVENOX TONIGHT. PATIENT BACK TO BED AT THIS TIME. WILL CONTINUE TO CLOSELY MONITOR.
--- NOTE | 2021-01-29 19:37 | NUR ---
REPORT RECEIVED FROM [facility]. CARE ASSUMED BY SN AT THIS TIME.
--- NOTE | 2021-01-29 20:30 | NUR ---
IN TO ASSESS PATIENT. PATIENT COMPLAINS OF 4/10 RIGHT KNEE PAIN. PATIENT GIVEN PAIN MEDICAITON. TEMP 100.6. PATIENT GIVEN IBUPROFEN. PATIENT RESPONDING APPROPRIATELY. PATIENT ABLE TO TRANSFR AND AMBULATE WITH MINIMAL ASSISTANCE. PATIENT ASSISTED TO THE BATHROOM. VOIDED 300MSL. PATIENT ASSISTED INTO BED AND REPOSITIONED. RIGHT LOWER LEG AND RIGHT HIP ELEVATED WITH PILLOWS. KRYO CUFF PLACED UNDER RIGHT KNEE. PATIENT OXYGEN SATURATION 95% ON ROOM AIR. HR REMAINS AROUND 100, ELEVATES TO 120 WITH AMBULATION. PATIENT HAS NO OTHER COMPLAINTS AT THIS TIME. CALL LIGHT IN PLACE. IN THE ROOM.
--- NOTE | 2021-01-29 22:00 | NUR ---
PATIENT ASLEEP IN BED. OXYGEN SATURTION DECREASING TO 85% ON ROOM AIR. OXYGEN APPLIED TO PATIENT AT 2 LPM VIA NASAL CANNULA. PATIENT SATURATION 94% ON 2 LPM. HR REMAINS AT 100. PATIENT HAS NO COMPLAINTS AT THIS TIME.
--- NOTE | 2021-01-29 23:30 | NUR ---
IN TO ASSIST PATIENT TO BATHROOM. PATIENT HAS COMPLAINTS OF NAUSEA. PATIENT TRANSFERED AND AMBULTED WITH LITTLE ASSISTANCE. PATIENT STATES THAT PAIN IN HIS KNEE HAS DECREASED. PATIENT ASSISTED TO BED. MEDICATION FOR NAUSEA GIVEN. TEMP 99.2. HR REMAINS AT 100. OXYGEN SATURATION 92% ON 2LPM VIA NC. PATIENT HAS NO COMPLAINTS AT THIS TIME.
--- NOTE | 2021-01-30 02:30 | NUR ---
CALLED INTO PATIENTS ROOM DUE TO CONCERNS OF CONGESTION IN THE LUNGS. RESPIRATORY ASSESSMENT PERFORMED. LUNG SOUNDS CLEAR. OXYGEN SATURATION 94% ON 2LPM VIA NC. PATIENTS HR REMAINS IN THE 80'S. PATIENT STATED " GOOD, I JUST WANTED TO MAKE SURE THAT THEY ARE FINE FOR SURGERY". PATIENT HAD NO OTHER COMPLAINTS AT THIS TIME.
--- NOTE | 2021-01-30 03:58 | NUR ---
IN TO ASSIST PATIENT TO THE BATHROOM. PATIENT ABLE TO TRANSFER AND AMBULATE WITH MINIMAL ASSISTANCE. PT RATES KNEE PAIN 2/10 AND STATES THAT NAUSEA IS GONE. HR REMAINS IN THE 80'S. RESPIRATIONS EVEN AND UNLABORED. OXYGEN SATURATION 100% ON 2LPM VIA NASAL CANNULA. TEMP 97.9. PATIENT HAS NO OTHER COMPLAINTS AT THIS TIME.
--- NOTE | 2021-01-30 05:21 | NUR ---
ASSISTED PATIENT TO THE BATHROOM. PATIENT STATES THAT LYNDON FEELS MUCH BETTER THIS MORNING. PATIENT AMBULTED WITH STAND BY ASSIST. PATIENT ASSISTED TO BED. LEG AND HIP ELEVATED WITH PILLOWS. CRYOCUFF IN PLACE. PATIENT HAS NO OTHER COMPLAINTS AT THIS TIME.
--- NOTE | 2021-01-30 07:30 | NUR ---
REPORT RECEIVED FROM NIGHTSHIFT RN, WILL CONTINUE PLAN OF CARE.
--- NOTE | 2021-01-30 08:24 | NUR ---
THIS RN IN TO ASSESS PT AND ADMINISTER ORDERED MEDICATIONS. PT INITTIALLY LAYING IN BED ALERT AND ORIENTED ON ROOM AIR, IVF INFUSING ORDERED. PT DENIES ANY PAIN OR SHORTNESS OF BREATH AT THIS TIME WHEN ASKED. DR. DONOHUE IN ROOM MOMENTARILY TO ASSESS PT AND UPDATE ON PLAN OF CARE. ORDERED MEDICATIONS ADMINISTERED AT THIS TIME (SEE NOV). PT ASSESSED, LUNGS ARE CLEAR, PULSES STRONG, KNEE STILL REDDENNED BUT HAS IMPROVED, ABDOMEN ALSO REDDENED AT THIS TIME. BOWEL TONES PRESENT. AFTER ASSESSMENT PT NEEDED TO VOID AND WAS ABLE TO GET UP TO GO TO THE BATHROOM USING HIS FRONT WHEEL WALKER. PT ABLE TO GET BACK INTO BED WELL AFTER VOIDING. PT NOW LAYING IN BED AND REPORTS NO FURTHER NEEDS. IVF INFUSING ORDERED, CRYO CUFF REFILLED AND IN PLACED, CALL LIGHT IN REACH, BED IN LOWEST POSITION, WILL CONTINUE PLAN OF CARE.
--- NOTE | 2021-01-30 08:58 | NUR ---
THIS RN IN TO CHECK ON PT. PT LAYING IN BED AWAKE AND ALERT ON PHONE WITH AT BEDSIDE. PT REPORTS NO NEEDS AT THIS TIME WHEN ASKED, SCD'S IN PLACE, CRYOCUFF IN PLACE, IVF INFUSING, BED IN LOWEST POSITION,CALL LIGHT IN REACH. WILL CONTINUE PLAN OF CARE.
--- NOTE | 2021-01-30 09:00 | NUR ---
Spoke with pt and his . Pt waiting to go to surgery. states they have all equipment needed as he mother was ill. Both cont. to plan on dc to home when cleared medically.
--- NOTE | 2021-01-30 09:22 | NUR ---
THIS RN IN TO HANG A NEW BAG OF MAINTENANCE IVF. PT LAYING IN BED AWAKE AND ALERT ON HIS PHONE, AT BEDSIDE. PT REPORTS NO PAIN AND NO NEEDS AT THIS TIME WHEN ASKED. WILL CONTINUE PLAN OF CARE. CALL LIGHT IN REACH, BED IN LOWEST POSITION, IVF INFUSING ORDERED.
--- NOTE | 2021-01-30 09:36 | NUR ---
THIS RN IN TO CHECK ON PT. PT AWAKE AND ALERT LAYING IN BED. PT STATED HE WAS HAVING NASEAU AND ASKED FOR PRN MEDICATION. PRN ZOFRAN ADMINISERED AT THIS TIME FOR NAUSEA. PT REPORTS NO FURTHER NEEDS AT THIS TIME WHEN ASKED AND DENIES PAIN. CALL LIGHT IN REACH, BED IN LOWEST POSITION, IVF INFUSING ORDERED, WILL CONTINUE PLAN OF CARE.
--- NOTE | 2021-01-30 10:09 | NUR ---
THIS RN IN TO CHECK ON PT. PT NEEDED TO GET UP AND VOID. PT ABLE TO GET OUT OF BED WITHOUT ASSISTANCE AND USE FRONT WHEEL WALKER TO GET TO THE BATHROOM TO VOID AND GET BACK. PT REPORTS NO NEEDS AFTERWARDS WHEN ASKED AND WAS HELPED BACK INTO BED. PT NOW LAYING IN BED, AT BEDSIDE. IVF INFUSING ORDERED, BED IN LOWEST POSITION, CALL LIGHT WITHIN REACH, WILL CONTINUE PLAN OF CARE.
--- NOTE | 2021-01-30 10:40 | NUR ---
THIS RN IN TO CHECK ON PT. PT AWAKE AND ALERT LAYING IN BED WITH IN ROOM. OR NURSE IN TO TRANSFER PT FOR HIS SURGERY. PT HANDED OFF TO OR NURSE AT THIS TIME TO CONTINUE PLAN OF CARE.
--- NOTE | 2021-01-30 13:54 | NUR ---
01/30/21 1354 Solange Norman 1344: PT ARRIVES TO PACU VIA STRETCHER AWAKE AND ALERT. VSS, SATS >98% ON 10L VIA FACEMASK. DRESSING C/D/I. YAZAN FLASHING GREEN. SPINAL LEVEL AT L2. SCDS IN PLACE
--- NOTE | 2021-01-30 14:35 | NUR ---
GIOVANY HICKMAN INFORMED ME THAT PT WAS TAKEN TO OR FOR SURGERY. WILL CONTINUE TO FOLLOW UPON HIS RETURN.
--- NOTE | 2021-01-30 15:22 | NUR ---
PT ARRIVED TO UNIT FROM OR AT 1440 AND WAS AWAKE AND ALERT, IVF INFUSING, SCD'S ON, CRYO CUFF ON. PT DENIED PAIN AT THIS TIME AND WAS ON ROOM AIR. REPORT RECEIVED FROM COREMAKER MACHINE'S. SCHEDULED MEDICATION ADMINISTERED AT THIS TIME. PT DENIES PAIN AT THIS TIME WHEN ASKED. PT IS ALERT AND ORIENTED, LEGS ARE STILL NUMB BUT STATES HE CAN FEEL THIS RN TOUCH THEM. PEDAL PULSES STRONG. RIGHT LEG HAS DRESSING IN PLACE, BRACE, AND CRYO CUFF. LEFT LEG HAS AN SCD IN PLACE. PT REPORTS NO FURTHER NEEDS AT THIS TIME WHEN ASKED. GIOVANY HICKMAN IN TO INFORM PT ON LINE PLACEMENT. WILL CONTINUE PLAN OF CARE. CALL LIGHT IN REACH, BED IN LOWEST POSITION, TXA INFUSING, AND GIOVANY HICKMAN IN ROOM WITH PT.
--- NOTE | 2021-01-30 17:08 | NUR ---
THIS RN IN TO CHECK ON PT. PT PICC LINE INSERTED, PT NOW LAYING IN BED AWAKE AND ALERT. PT REPOSITIONED ONTO BED WITH THE HELP OF URBAN PLANNER. PT STARTED ON MAINTENANCE IVF AT THIS TIME. PT REPORTS NO PAIN WHEN ASKED AND STILL REPORTS SOME NUMBNESS IN HIS LEGS FROM THE BLOCK. PEDAL PULSES STRONG, CAP REFILL BRISK, DRESSING UNCHANGED. PT REPORTS NO FURTHER NEEDS AT THIS TIME WHEN ASKED, WILL CONTINUE PLAN OF CARE. CALL LIGHT IN REACH, BED IN LOWEST POSITION. IVF INFUSING ORDERED.
--- NOTE | 2021-01-30 17:53 | NUR ---
THIS RN IN TO CHECK ON PT. PT LAYING IN BED AWAKE AND ALERT TALKING TO . PT STATED HE JUST ORDERED HIS DINNER. PT DENIES PAIN AT THIS TIME AND REPORTS NO NEEDS WHEN ASKED, WILL CONTNINUE PLAN OF CARE.
--- NOTE | 2021-01-30 19:00 | NUR ---
THIS RN IN IN TO ASSESS PT. PT WOUND ASSESSED AT THIS TIME AND SHOWS NO NEW CHANGE OR SIGNS OF BLEEDING. DARCIE BANDAGE, BRACE, AND CYROCUFF IN PLACE. CRYOCUFF HAS BEEN REFILLED WITH ICE. PT DENIES PAIN AT THIS TIME. PT STATES HIS SHEET WAS WET, WHEN ASSESSED PT WAS URINATING AND THEREFORE INCONTINENT, PT STATED HE DID NOT FEEL HIMSELF URINATING. PERICARE DONE ON PT AT THIS TIME, BED CHANGE DONE. PT NOW LAYING IN BED IN NEW LINENS AND A PAD UNDERNEATH. HEMOVAC EMPTIED AT THIS TIME OF 90ML OF SEROUS FLUID. WHEN ASSESSING YAZAN DRESSING IT WAS NOTICED THAT THE LIGHT WAS ORANGE. THIS WAS PASSED ON TO THE NIGHTSHIFT NURSES. PT LAYING IN BED, IVF INFUSING ORDERED, AT BEDSIDE, BED IN LOWEST POSITION, CALL LIGHT IN REACH.
--- NOTE | 2021-01-30 19:11 | NUR ---
PICC INSERTION NOTE: ASKED BY DR. MARCH TO EVALUATE PATIENT FOR POTENTIAL PICC LINE PLACEMENT. PATIENT UNDERWENT SURGERY TODAY FOR AN INFECTION IN RIGHT KNEE. PATIENT AND HIS WERE ABLE TO DISCUSS THIS AND AGREE TO PICC LINE. PATIENT WILL NEED [facility] AB[facility] FOR APPROX 3 MONTHS FOR HIS INFECTION. AFTER REVIEWING THE CHART, NO ABSOLUTE CONTRAINDICATIONS WERE IDENTIFIED. PATIENT'S RIGHT ARM WAS EVALUTED FIRST WITH THE SITE KATHLEEN U/S AND THE CEPHALIC AND THE BASILIC WERE BOTH IDENTIFIED, AND BOTH POTENTIAL CANDIDATES. THE CEPHALIC THE BEST CHOICE A 4FR CATHETER WOULD ONLY CONSUME APPROX 33% OF THE VEIN DIAMETER. STERILE PROCEDURE WAS FOLLOWED FOR PREPARATION OF PATIENT'S RIGHT ARM. IV ACCESS WAS OBTAINED UPON THE INITIAL ATTEMPT, WITH BRISK, DARK, NON PULSATILE BLOOD WAS EASILY RETURNED. GUIDEWIRE WAS EASILY ADVANCED INTO THE CATHETER, FOLLOWED BY THE INTRODUCER. PATIENT'S PICC WAS ADVANCED EASILY UPON THE FIRST ATTEMPT, BUT THE LINE DID NOT SHOW IT WAS IN THE APPROPRIATE POSITION. 2 MORE ATTEMPTS TO ADVANCE THE LINE WERE MADE, BUT BOTH OF THESE ATTEMPTS WERE MET WITH MORE RESISTANCE THAN THE FIRST TIME THE LINE WAS ADVANCED. THE TOURNIQUET WAS THEN RELEASED, AND A FINAL ATTEMPT WAS MADE TO ADVANCE THE LINE WHILE USING THE 3CG TECHNOLOGY. THIS LAST TIME, THE PICC ADVANCED EASILY, AND SHOWED IT TO BE IN OPTIMAL POSITION. A CHEST XRY WAS TAKEN AND THE PICC LOOKS SATISFACTORY FROM THE INITIAL CHEST XRAY IN THE ROOM. APPROX 15-20 MINUTES AFTER THE PICC WAS FINISHED, THE PATIENT WAS NOTED TO HAVE MULTIFOCAL PVCs, WITH SOME SAM OF VTACH. THE PATIENT INITIALLY DENIED FEELING THIS ECTOPY, BUT DID NOTE AN OCCASIONAL FEELING OF "PALPITATIONS." THE PICC WAS INITIALLY AT 0 CM EXPOSED, BUT WHEN THIS ECTOPY WAS NOTED, THE PICC WAS PULLED BACK 3 CM AND AN ADDITIONAL CHEST XRAY WAS TAKEN. THE ECTOPY CALMED DOWN, BUT DID NOT RESOLVE ENTIRELY AFTER ABOUT 45 MINUTES. THE PICC WAS THEN PULLED BACK AN ADDITIONAL 2 CM TO HAVE A TOTAL OF 5 CM EXPOSED. PATIENT'S ECTOPY SINCE HAS CALMED DOWN TO A RARE PVC HERE AND THERE. PATIENT AND HIS WERE UPDATED ON ALL OF THIS AND EXPRESSED UNDERSTANDING. WILL CONTINUE TO MONITOR. REPORT WAS GIVEN TO GIOVANY JORDAN WHO IS CARING FOR THIS PATIENT. PATIENT ENCOURAGED TO ASK QUESTIONS REGARDING HIS PICC LINE AT ANY TIME.
--- NOTE | 2021-01-30 19:30 | NUR ---
REPORT RECEIVED FROM NIKKI ADAIR.
--- NOTE | 2021-01-30 19:45 | NUR ---
IN TO CHECK ON PT AND DO ASSESSMENT. PT REPORTS THAT HE IS REGAINING FEELING IN HIS LEG, REQUESTING PAIN MEDICATION STATES THE PAIN IS RETURNING AND HE WANTS TO KEEP ON TOP OF IT. CMS INTACT, RIGHT LEG HAS BRACE, ON CRYO CUFF, PICA IN PLACE AND HEMOVAC DRAINED OF 50ML SANGUINOUS FLUID. PT DENIES FURTHER NEEDS.
--- NOTE | 2021-01-30 21:30 | NUR ---
PT HAS BEEN INC URINE, SITTING WITH URINAL BETWEEN LEGS TO CATCH URINE, UNABLE TO FULLY VOID. BLADDER SCAN DONE SHOWS 425ML. PT RELUCTANT TO HAVE A CATHETER, REQUESTS TO KEEP TRYING TO VOID ON HIS OWN.
--- NOTE | 2021-01-30 22:15 | NUR ---
PT SAT ON EDGE OF BED, PUTTING WEIGHT ON LEFT LEG ONLY TO GET INTO A POSITION TO BE ABLE TO VOID. WAS ABLE TO VOID ONLY 50ML URINE.
--- NOTE | 2021-01-30 23:43 | NUR ---
PT WAS ABLE TO VOID 200ML AT A TIME. DENIES NEEDS AT THIS TIME.
--- NOTE | 2021-01-31 02:00 | NUR ---
PT HAS BEEN RESTING WITH EYES CLOSED, RESP EVEN AND UNLABORED.
--- NOTE | 2021-01-31 04:15 | NUR ---
PT CALLED WITH FINDING HEMOVAC PULLED OUT, SANGUINOUS FLUID ON GOWN, BEDDING. ASSISTED PT WITH CLEAING UP AND CHANGING LINENS. UP TO BSC FOR LARGE BM. BACK TO BED. DENIES NEED FOR PAIN MEDS AT THIS TIME, WILL TRY TO SLEEP.
--- NOTE | 2021-01-31 05:30 | NUR ---
CALL TO DR MARCH TO INFORM HIM THAT THE HEMOVAC CAME APART. DISCUSSION ON HOW TO REMEDY. LAB IN WITH PT.
--- NOTE | 2021-01-31 06:00 | NUR ---
HEMOVAC ATTACHED TO WALL SUCTION. PT AWAKE IN BED, NO REQUESTS AT THIS TIME.
--- NOTE | 2021-01-31 07:45 | NUR ---
Update from Rn. Pt kristen de la rosa. Spoke with Dr. Medrano pt plan is to dc to home with IV antibiotics and n discharge.
--- NOTE | 2021-01-31 07:50 | NUR ---
ASSESSMENT COMPLETE. PT RATING RT KNEE PAIN 05/09, GIVEN 10 MG OXYCODONE AND PREMEDICATED W/ ZOFRAN PT STATES PAIN MEDS MAKE HIM NAUSEOUS. LUNG SOUNDS ARE CLEAR, DIM IN BASES, PT DENIES SOB AT REST OR W/ EXERTION. USING URINAL TO VOID AT BEDSIDE, QUANTITY HAS BEEN SUFFICIENT. PT WILL WORK WITH PATIENT THIS AM, PT FEELING SLIGHTLY ANXIOUS ABOUT IT. HEMOVAC REATTACHED BY DR MARCH AND IS NOW FUNCTIONING WELL. YAZAN DRESSING FLASHING ORANGE INDICATING NEED TO BE CHANGED. PT GIVEN MORNING MEDICATIONS. VSS. 1PA W/ FWW, NON WEIGHT BEARING RLE. TOLERATING REGULAR DIET WELL AND HAD LARGE BM THIS AM. UP IN CHAIR NOW, IN ROOM. CALL LIGHT IN REACH. DENIES FURTHER NEEDS.
--- NOTE | 2021-01-31 12:00 | NUR ---
PT UP IN CHAIR EATING LUNCH. WORKED WELL WITH PT THIS AM AMBULATING HALLWAYS. PT IS NOW TOE-TOUCH RLE. 1PA W/ FWW. PT STATES PAIN HAS BEEN WELL CONTROLLED BY OXYCODONE Q4HP. DENIES FURTHER NEEDS. CALL LIGHT IN REACH.
--- NOTE | 2021-01-31 13:00 | NUR ---
PICC DRESSING SATURATED, INSERTION YESTERDAY. DRESSING CHANGED, 5 CM EXPOSED AND 31 CM FOR ARM CIRCUMREFERENCE. EDUCATED PT ON PICC LINE MANAGEMENT. BRISK BLOOD RETURN NOTED. LR NOW INFUSING AT 50 MLS/HR.
--- NOTE | 2021-01-31 14:00 | NUR ---
YAZAN DRESSING CHANGED TO RIGHT KNEE. ACTICOAT SILVER PLACED OVER INCISION, AND YAZAN REINFORCED AROUND EDGES. LIGHT BLINKING GREEN AND ORANGE, APPEARS TO BE SUCTIONING.
--- NOTE | 2021-01-31 14:56 | NUR ---
GIOVANY UNGER IN WITH PT. WILL CHECK BACK LATER
--- NOTE | 2021-01-31 15:40 | NUR ---
PT ARRIVES TO MED SURG FLOOR BY WALKING TO NEW ROOM WITH PT MAKAYLA. PT REPORTS NO PAIN WITH AMBULATION, USES FWW AND TOE TOUCH WB. BRACE IN PLACE OVER DARCIE WRAP, YAZAN FLASHING GREEN AND HEMOVAC IN PLACE. DRESSINGS C/D/I. PICC LINE FLUSHED WIH 10ML SALINE, TURBULENT FLUSH, BRISK BLOOD RETURN. IVF INFUSING WNL. CMS INTACT. CRYO CUFF IN PLACE. PT RESTS IN CHAIR WITH LEGS ELEVATED.2+ EDEMA NOTED IN R KNEE TO TOES, WARM TO TOUCH. WATER REFRESHED, DAUGHTER AT BEDSIDE, ORIENTED TO ROOM.
--- NOTE | 2021-01-31 17:22 | OR ---
[facility] [address], [place] [address] Signed DATE OF OPERATION: 01/30/2021 SURGEON: Kvng Chow MD PREOPERATIVE DIAGNOSIS: Infected right TKR. POSTOPERATIVE DIAGNOSIS: Infected right TKR. PROCEDURE PERFORMED: Removal of right TKR, all components. NURSES SUPERINTENDENT: Thalia Scherer PA-C. Thalia was present and critical for all portions of procedure. BLOOD LOSS: None. TOURNIQUET TIME: 110 minutes. BRIEF HISTORY: Tyson is a 65-year-old gentleman, who was admitted with cellulitis in his right lower extremity on Saturday afternoon. His cellulitis continued to worsen despite triple antibiotics. His blood cultures were initially negative. The patient continued to have worsening knee pain and complete loss of his range of motion as of yesterday compared to 90 degrees of flexion when he came in. The knee was aspirated yesterday and showed clear purulent material and gram-positive cocci. The discussion for a single stage revision today was discussed with the patient, however, once I got into the operating room and got into the knee, I found more pus in the soft tissue, particularly in the thigh medially. We elected then to just go with a 2-stage revision to be safest in terms of getting rid of the infection. After consent, he was taken to the operating room, placed on the operating room table. All downside pressure points were well padded. A well-padded proximal thigh tourniquet was placed on the right knee and the leg was prepped and draped in a standard sterile fashion. The leg was exsanguinated using Esmarch bandage and tourniquet inflated to 275 mmHg. The prior incision was marked out and extended an inch in each direction, taken through skin and subcutaneous tissue. Incision itself was completely healed. The underlying soft tissue, Electronically Signed By: KVNG CHOW MD 01/31/21 1722 PATIENT NAME: TYSON MCBRIDE OPERATIVE REPORT DATE OF : 55 REPORT #: [id number] PHYSICIAN: KVNG CHOW MD PCP: MEE ZHAO NP REPORT IS CONFIDENTIAL AND NOT TO BE RELEASED WITHOUT AUTHORIZATION [facility] [address], [place] [address] Signed particularly the medial soft tissue sleeve was completely full purulent material. There was a small rent in the arthrotomy at the infrapatellar pole. The best of the arthrotomy was completely intact. The arthrotomy was opened up and extended into a mid vastus arthrotomy. The synovium in the anterior and superior parts of the knee was removed as best we could. We removed the polyethylene to allow better flexion. Then, using flexible osteotomes, we went all the way around the femoral component. There was not a great deal of assistance and it was then impacted off the distal femur. The same with the tibia. The flexible osteotomes were taken all the way around the implant. Again, it was relatively easily removed with only some minor spot weld on both come components. The patellar component was removed completely as well. All bony surfaces were curetted and the remainder of the synovium posteriorly in the posterior medial and posterior lateral gutters was removed as best we could again using sharp dissection. The knee was then pulse lavaged using 6 L of antibiotics with a dilute iodine soak in the middle. Once this was accomplished, the antibiotic cement was mixed and made into a femoral and tibial component of sorts and placed in the knee. This allowed good space and about 25 to 30 degrees of motion. We then placed a Hemovac drain and closed the arthrotomy with #1 PDS. The subcutaneous tissue with 0 PDS and the skin with 2-0 nylon interrupted. Wound was dressed with a YAZAN wound VAC dressing and Edmund wrap. He was awakened, taken to the recovery room in satisfactory condition. All sponge, needle, and instrument counts were correct. Kvng Chow MD BA/MODL /[id number] Copies: ~ Electronically Signed By: KVNG CHOW MD 01/31/21 1722 PATIENT NAME: TYSON MCBRIDE OPERATIVE REPORT DATE OF : 55 REPORT #: [id number] PHYSICIAN: KVNG CHOW MD PCP: MEE ZHAO NP REPORT IS CONFIDENTIAL AND NOT TO BE RELEASED WITHOUT AUTHORIZATION
--- NOTE | 2021-01-31 18:50 | NUR ---
DR DONOHUE IN TO SEE PT. SOON TO RECEIVE TRANSFER ORDERS TO MED SURG FLOOR.
--- NOTE | 2021-01-31 19:05 | NUR ---
IN ROOM FOR REPORT, ASSISTED PT BACK TO BED FROM CHAIR. HE HAS CRYOCUFF IN PLACE AND DENIES FURTHER NEEDS. CALL LIGHT IS CLOSE.
--- NOTE | 2021-01-31 20:24 | NUR ---
CALL LIGHT ANSWERED. URINAL EMPTIED. IV PUMP ALARMING, PICC LINE FLUSHED WNL, BRISK BLOOD RETURN. VSS. ICE WATER PROVIDED. pt RATES PAIN 05/09, PRIMARY RN NOTIFIED AND IN ROOM TO ADMINISTER MEDICATIONS.
--- NOTE | 2021-01-31 20:57 | NUR ---
COMPLETED ASSESSMENT AND ADMINISTERED EVENING MEDICATIONS. ALSO ADMINISTERED 2 OXYCODONE FOR PAIN ALONG WITH ZOFRAN IT CAUSES NAUSEA. PT REPORTS NUMBNESS AND TINGLING IN RT FOOT BUT STATES IT MAY GET BETTER AFTER TAKING GABAPENTIN IT FEELS LIKE NERVE PAIN. HEMOVAC AND YAZAN ARE IN PLACE AND GREEN LIGHT IS FLASHING. DRESSING TO R KNEE IS CDI AND DARCIE WRAP IS NOT ON TOO TIGHT. KNEE BRACE IS IN PLACE AND THERE IS ROOM UNDERSTRAPS FOR FINGERS TO EASILY FEEL BELOW. PT LEG IS ELEVATED ON PILLOW WTIH CRYOCUFF IN PLACE. PT HAS REDNESS NOTED TO ABDOMEN WHICH HE STATES HAS BEEN NORMAL D/T THE BACTERIA HE HAS. PT DENIES FURTHER NEEDS. CALL LIGHT IS CLOSE.
--- NOTE | 2021-01-31 21:33 | NUR ---
CALL LIGHT ANSWERED. URINAL EMPTIED. DAUGHETER UP IN CHAIR AT BEDSIDE. pt DENIES ADDITIONAL REQEUSTS.
--- NOTE | 2021-01-31 22:30 | NUR ---
IN ROOM TO START NEXT IV ABX. PT REPORTS PAIN A 4 AT REST WITH INTTERMITTENT SHARP PAIN TO A 6/10. ADMINISTERED MOTRIN AND REFILLED CRYOCUFF WITH ICE. PT STATES HE DOES NOT WANT TO WEAR THE ICE TONIGHT. PT DENIES FURTHER NEEDS. CALL LIGHT IS CLOSE.
--- NOTE | 2021-02-01 00:16 | NUR ---
IV PUMP BEEPING, IT IS NOW INFUSING FINE. PT IS RESTING WITH EYES CLOSED, RR IS EVEN AND NONLABORED. CALL LIGHT IS CLOSE.
--- NOTE | 2021-02-01 02:01 | NUR ---
PT JUST USED URINAL PER BRIGIDO RN. WENT INTO CHECK ON PT AND HE IS ALREADY SLEEPING. RR IS EVEN AND NONLABORED. CALL LIGHT IS CLOSE.
--- NOTE | 2021-02-01 03:16 | NUR ---
EMPTIED 70MLS SANGUINOUS DRAINAGE FROM HEMOVAC, YAZAN DRESSING REMAINS CDI AND IS BLINKING GREEN. SCD ON L LEG AND PT DENIES HAVING A ROLLED UP TOWEL BEHIND HEEL AT NIGHT AND STATES IT TOO UNCOMFORTABLE AND WILL DO DURING THE DAY. PT ALSO REMOVED CRYOCUFF. HE DENIES PAIN AT THIS TIME STATING HE IS ONLY AT A 3/10. IV IS INFUSING FINE THROUGH PICC LINE AND PT DENIES FURTHER NEEDS. CALL LIGHT IS CLOSE.
--- NOTE | 2021-02-01 04:05 | NUR ---
PT CALLED TO HAVE URINAL EMPTIED. HE DENIES FURTHER NEEDS. IV IS INFUSING FINE AND CALL LIGHT IS CLOSE.
--- NOTE | 2021-02-01 06:00 | NUR ---
IN ROOM TO EMPTY URINAL AND ENTER VS, I&O'S. PT HAS A HEADACHE AND TAKES IBUPROFEN AND TYLENOL AT HOME. ADMINISTERED BOTH MEDS PER PT REQUEST. HE DENIES FURTHER NEEDS AT THIS TIME. CALL LIGHT IS CLOSE.
--- NOTE | 2021-02-01 06:35 | NUR ---
PT AMBULATES 1PA FWW TTWB, YAZAN ON R KNEE IS CDI AND HEMOVAC PUT OUT 80MLS TOTAL SEROSANGUINOUS DRAINAGE. HIS RT FOOT HAS 3+ EDEMA WITH GOOD PEDAL PULSES AND CAPREFILL. PT REPORTS SOME N/T IN BOTTOM OF RIGHT FOOT. PT'S PAIN WAS WELL CONTROLLED THROUGH THE NIGHT WITH OXYCODONE AND MOTRIN. PT HAS LEFT SCD IN PLACE AND HAS BRACE ON R LEG. PT REFUSED CRYOCUFF AT WHILE SLEEPING BUT STATES HE WILL WEAR DURING THE DAY. PICC LINE HAS GOOD BLOOD RETURN AND PT HAS LR INFUSING AT 50MLS/HR.
--- NOTE | 2021-02-01 07:15 | NUR ---
THIS RN RECEIVED REPORT FROM CHRISTIAN ADAIR. PT UP TO THE RESTROOM WITH HELP FROM PTS DAUGHTER THIS PT WILL BE BACK TO CHECK ON PT AFTER A BIT
--- NOTE | 2021-02-01 08:49 | NUR ---
THIS RN IN PTS ROOM TO DO MORNING ASSESSMENT AND GIVE MORNING MEDS. PT SITTING UP IN BED AND APPEARS DROWSY THIS AM, PT STATES THAT HE WOKE UP EARLY THIS AM. PT REPORTS THAT HIS PAIN IS 1/10 AT REST THIS AM. PT DOES REPORT SOME PAIN AT INCISION SITE. PT HAS NO OTHER CONCERNS THIS AM. PTS DAUGHTER AT BEDSIDE
--- NOTE | 2021-02-01 10:08 | NUR ---
UP IN CHAIR VITALS TAKEN DOCUMENTED ALONG WITH I&O'S. LINEN CHANGED. ICE REPLACED.
--- NOTE | 2021-02-01 10:29 | NUR ---
this rn provided pt with 10mg of oxy per pt request. pt wants to take pain meds prior to working with physical therapy
--- NOTE | 2021-02-01 12:32 | NUR ---
DURING ROUNDS PATIENT WAS UP IN CHAIR WATCHING TV. FINISHED MEAL HAD BM AND VOIDED. NOTHING ELSE NEEDED
--- NOTE | 2021-02-01 12:43 | NUR ---
DISCUSSED WITH DR DONOHUE, PT MAY NEED OP ANTIBIOTICS OR ANTIBIOTICS IN THE HOME. AWAITING CULTURE AND SENSITIVITY FROM THE LAB.
--- NOTE | 2021-02-01 13:34 | NUR ---
PATIENT UP IN CHAIR. VITALS AND I&O'S DONE AND CHARTED. NOTHING ELSE NEEDED AT THIS TIME
--- NOTE | 2021-02-01 14:55 | NUR ---
PT ALERT, ORIENTED AND VISITING WITH DAUGHTER. PT SITTING IN CHAIR WITH CRYO CUFF ON AND LEGS ELEVATED. PT TOLD ME HIS STORY, SEEMS TO BE DEALING WITH THE SITUATION APPROPRIATELY. HAD GOOD VISIT, DAUGHTER LEAVING SO G.SON COULD VISIT GAVE BLESSING, WILL FOLLOW NEEDED
--- NOTE | 2021-02-01 16:50 | NUR ---
THIS RN IN PTS ROOM TO CHECK ON PT. PT SITTING UP IN CHAIR WITH CRYO CUFF IN PLACE. PT STATES THAT HE GOT SOME GOOD RELIEF FROM THE PAIN MEDS. THIS RN EMTIPED PTS HEMAVAC- 60ML OUT FOR A TOTAL TODAY. PT STATES THAT HE NEEDS NOTHING AT THIS TIME
--- NOTE | 2021-02-01 17:54 | NUR ---
PATIENT VISITING WITH . ALL CHARTING AND VITALS ARE DONE. PATIENT SAYS HE IS SETTLED AND DOESNT NEED ANYTHING FOR NOW
--- NOTE | 2021-02-01 19:03 | NUR ---
IN ROOM FOR REPORT, PT IS AWAKE IN BED. HE DENIES NEEDS AT THIS TIME. CALL LIGHT IS CLOSE.
--- NOTE | 2021-02-01 21:30 | NUR ---
IN ROOM TO ASSESS PT AND ADMINISTER MEDICATIONS. PT REPORTS 7/10 PAIN BUT WOULD LIKE TO WAIT UNTIL IT'S TIME HE CAN HAVE ZOFRAN TO AVOID NAUSEA. PICC LINE HAS GOOD BLOOD RETURN AND PT IS DRINKING WELL AND VOIDING ALOT. AFTER IV ABX ARE COMPLETE WILL FOLLOW ORDER TO SL IV SINCE HE IS TOLERATING PO INTAKE. PICC IS POSITIONAL AND IV BEEPS ALOT KEEPING HIM AWAKE. YAZAN ON KNEE IS CDI AND LIGHT IS FLASHING GREE. HEMOVAC IN PLACE AND DRAINING SEROSANGUINOUS FLUID. CRYOCUFF IS IN PLACE ON R KNEE ALONG WITH BRACE. PT HAS BILAT TEDHOSE ON WELL. PT DENIES FURTHER NEEDS AT THIS TIME. CALL LIGHT IS CLOSE AND IS AT BEDSIDE.
--- NOTE | 2021-02-01 21:53 | NUR ---
IN ROOM TO ADMINISTER 2 OXYCODONE FOR 7/10 PAIN. ALSO ADMINISTER ZOFRAN TO AVOID NAUSEA. PT DENIES FURTHER NEEDS AT THIS TIME. CALL LIGHT IS CLOSE.
--- NOTE | 2021-02-01 23:47 | NUR ---
PT IS RESTING WITH EYES CLOSED, RR IS EVEN AND NONLABORED. CALL LIGHT IS CLOSE.
--- NOTE | 2021-02-02 01:18 | NUR ---
PT IS RESTING WITH EYES CLOSED, RR IS EVEN AND NONLABORED. CALL LIGHT IS CLOSE.
--- NOTE | 2021-02-02 01:25 | NUR ---
CALL LIGHT ON, EMPTIED URINAL, WARM BLANKET PROVIDED, NO FURTHER NEEDS AT THIS TIME
--- NOTE | 2021-02-02 02:43 | NUR ---
URINAL EMPTIED, NO FURTHER NEEDS AT THIS TIME
--- NOTE | 2021-02-02 03:08 | NUR ---
PT IS RESTING WITH EYES CLOSED, RR IS EVEN AND NONLABORED. CALL LIGHT IS CLOSE.
--- NOTE | 2021-02-02 03:49 | NUR ---
IN ROOM TO CHECK ON PT. PT REPORTS A HEADACHE 4/10 AT THIS TIME AND NO PAIN IN R KNEE. ADMINISTERED TYLENOL AND MOTRIN PER PT REQUEST. R KNEE DRESSING REMAINS CDI AND CRYOCUFF IS INPLACE. PT DENIES FURTHER NEEDS AT THIS TIME. CALL LIGHT IS CLOSE.
--- NOTE | 2021-02-02 04:56 | NUR ---
PT CALLED TO HAVE URINAL EMPTIED, HE IS NOW RESTING WITH EYES CLOSED, RR IS EVEN AND NONLABORED. CALL LIGHT IS CLOSE.
--- NOTE | 2021-02-02 06:17 | NUR ---
BLOOD DRAWN AND SENT TO LAB. VS % I&O'S TAKEN, PT DENIES FURTHER NEEDS. CALL LIGHT IS CLOSE.
--- NOTE | 2021-02-02 09:00 | NUR ---
REPORT RECEIVED FROM NIGHT RN AND PT. CARE RESUMED. PT. IS ALERT AND ORIENTED. SITTING UP IN BED WITH AT BEDSIDE. PT. REPORTS MODERATE PAIN IN RT. KNEE AND REQUESTED PAIN MED. BEFORE P.T. RT. KNEE YAZAN DRESSING IS C.D.I. WITH EDIE HOSE, BRACE AND CRYO CUFF IN PLACE. +2 EDEMA PRESENT RLE. IV SITE WNL AND PICC SITE FLUSHES AND RETURNS BLOOD. HEP. LOCKED. DISCUSSED POC AND SAFETY. PT. LEFT RESTING WITH CALL LIGHT IN REACH.
--- NOTE | 2021-02-02 11:28 | NUR ---
PT. UP TO THE CHAIR WITH . DENIES PAIN. HEMOVAC EMPTIED OF 20ML SERISANGUINOUS DRAINAGE. YAZAN DRESSING CDI.
--- NOTE | 2021-02-02 12:59 | NUR ---
PT. AMBULATED WITH 1PA 4 LAPS AROUND THE UNIT AND TOLERATED WELL. DENIES DIZZINESS AND PAIN. SLIGHTLY SOB BUT RECOVERED QUICKLY WHEN RESTING AFTER.
--- NOTE | 2021-02-02 13:18 | NUR ---
PT ALERT, ORIENTED AND JUST RETURNED FROM P.T. MAKAYLA AMBULATING IN HALLWAY. PT IN CHAIR WITH LEGS UP AND CRYOPAK IN USE. RAKEL IN WELL. HAD GOOD VISIT, PT TALKED ABOUT WHAT HIS SYMPTOMS WERE LIKE THAT BROUGHT HIM HERE LONG RECOVERY AHEAD OF PT. HE SEEMS TO HAVE GOOD OUTLOOK. ENCOURAGED TO TAKE ONE DAY AT A TIME. GAVE BLESSING, WILL FOLLOW NEEDED
--- NOTE | 2021-02-02 15:04 | NUR ---
I ASKED PATIENT IF HE WOULD LIKE TO TAKE A BED BATH AND HE TOLD ME HE TOOK ONE LAST NIGHT. SO I AM GOING TO GO IN AND GIVE ME SOME EXTRA TOWELS AND BODY WASH SO HE CAN TAKE A BED BATH TONIGHT. HIS HELPS HIM.
--- NOTE | 2021-02-02 15:15 | NUR ---
REDDNESS ON LT. LEG AND ABDOMEN ARE NO LONGER PRESENT. PT. DENIES PAIN AFTER AMBULATING WITH P.T.
--- NOTE | 2021-02-02 15:44 | NUR ---
REFILLED PATIENT'S CRYO. PATIENT'S COUSIN IS VISITING.
--- NOTE | 2021-02-02 16:46 | NUR ---
Spoke with Dejon. awaiting cultures to determine antibiotic. Pt may need OP or HH for antibiotics.
--- NOTE | 2021-02-02 18:01 | NUR ---
PT. IS HERE FOR INFECTION RELATED TO RECENT RT. KNEE SURGERY. MINIMAL PAIN, BUT RECEIVED OXYCODONE 2X PRIOR TO P.T. TODAY. PICC IS HEP. LOCKED, FLUSHES WELL AND HAS GOOD BLOOD RETURN. HAS AMBULATED WITH FWW AND TOE TOUCH. TEMP. WAS 99.9F AT 1800 AND SHOULD BE MONITORED. REDNESS AROUND ABD., BACK AND LT. LEG IS NO LONGER PRESENT. PRESENT IN THE ROOM ALL DAY.
--- NOTE | 2021-02-02 21:32 | NUR ---
PT COOPERATIVE WITH ASSESSMENT, ON ROOM AIR, CLEAR LUNGS, FLUSHED FACE, PINK SCATTERED COLORING OVER L ABD, FLANK AND BACK, BARELY PERCEPTIBLE OVER R /LEFT LEGS. R KNEE AREA INCISION SITE YAZAN DRESSING COVERED WITH OPSITE, PUMP VARIES BETWEEN GREEN AND YELLOW LIGHT FLASHING. HEMOVAC WITH SCANT AMOUNT OF SS DRAINAAGE, BRACE IN PLACE, EDIE HOSE AND HEEL PROTECTORS BILAT, SCDS L LEG, EDEMA 2+ R LE, GENERALIZED EDEMA. USES URINAL, MEDICATED WITH OXYCODONE EARLIER PER C/O PAIN. SL LAR AND PICC LINE R ARM PATENT. CALL LIGHT AT HANDS REACH, TOLERATING FLUIDS WELL. WIDE ROOMING IN, NO FURTHER C/O
--- NOTE | 2021-02-02 22:17 | NUR ---
IN TO EMPTY URINAL, NO FURTHER NEEDS
--- NOTE | 2021-02-02 23:44 | NUR ---
EMPTIED PT'S URINAL, HE REPORTS A HEADACHE 4/10 AND STATES HIS R KNEE FEELS BETTER AT 4/10 AT THIS TIME. ADMINISTERED TYLENOL AND MOTRIN FOR PT'S HEADACHE PER HIS REQUEST. PT DENIES FURTHER NEEDS AT THIS TIME. CALL LIGHT IS CLOSE.
--- NOTE | 2021-02-03 02:31 | NUR ---
resting, no further c/o h/a, on room air. call light at bedside. fluids at bedside, no emesis inroom.
--- NOTE | 2021-02-03 04:20 | NUR ---
IN TO GET VITALS, REPLACED CRYO ICE, EMPTIED URINAL AGAIN, NO FURTHER NEEDS AT THIS TIME
--- NOTE | 2021-02-03 05:04 | NUR ---
pT COOPERATIVE, HAS BEEN MEDICATED WITH OXYCODONE, TYLENOL AND MOTRIN PER R KNEE AND H/A PAIN. R KNEE EDEMA PRESENT, YAZAN DRESSING IN PLACE, HEMOVAC WITH 10CC DRAINAGE EARLIER IN SHIFT AND VERY SCANT AMOUNT THIS AM. EDIE HOSE R KNEE BRACE IN PLACE, SCDS L LEG. HEEL PROTECTORS EDIE HOSE IN PLACE. R PICC LINE PATENT, COOP WITH BLOOD DRAWS. SL LAC PATENT. MUCH IMPROVED EDEMA BOTH LE EXCEPT AT R KNEE AREA. MUCH IMPROVED-BARELY PERCEPTIBLE RASH NOTED ON BACK, MUCH IMPROVED, NOT THERE OVER ABD. LEG LATERAL AND BACK BARELY PINK. TOLERATING FLUIDS WELL, NO EMESIS, VOIDING QS. CALL LIGHT AT HANDS REACH, IN ROOM
--- NOTE | 2021-02-03 09:00 | NUR ---
REPORT RECEIVED FROM NIGHT RN AND PT. CARE RESUMED. PT. IS UP TO THE BATHROOM WITH FWW AND TOE TOUCH. TOLERATED WELL. ALERT AND ORIENTED. TOLERABLE MILD PAIN IN RT. KNEE BUT REQUESTED OXYCODONE PRIOR TO P.T. IV SITE FLUSHES WELL. PICC FLUSHES, RETURNS BLOOD AND HEP LOCKED. DRESSING INTACT. RT. KNEE YAZAN DRESSING IS CDI AND FLASHING GREEN. KNEE BRACE, EDIE HOSE BLE, HEMOVAC, AND CRYO CUFF IN PLACE. LUNGS CLEAR. NO SIGNS OF REDNESS ANYMORE ON LT. LEG OR ABDOMEN. PT. AND DISCUSSED POC. LEFT RESTING WITH CALL LIGHT IN REACH.
--- NOTE | 2021-02-03 11:14 | NUR ---
LT. IV SITE DC'D. CATH INTACT AND PT. TOLERATED WELL
--- NOTE | 2021-02-03 11:59 | NUR ---
RAKEL IN WITH PT, CHEERFUL WAITING FOR CULTURES. GAVE ENCOURAGEMENT, WILL FOLLOW NEEDED
--- NOTE | 2021-02-03 12:23 | NUR ---
HE LIKES TO DO HIS BED BATH BEFORE HE GOES TO BED AT NIGHT. HIS HELPED HIM LAST NIGHT. AND HE WILL DO A BED BATH TONIGHT. I AM GOING TO SET IT UP FOR HIM AND HIS .
--- NOTE | 2021-02-03 14:30 | NUR ---
PT. REPORTS 02/06 RT. KNEE PAIN AFTER P.T. ADMIN. NORCO. PICCO DRESSING CDI AND FLASHING GREEN. +2 EDEMA STILL PRESENT RLE. LUNGS CLEAR. PT. LEFT RESTING IN BED WITH CALL LIGHT IN REACH.
--- NOTE | 2021-02-03 17:30 | NUR ---
CHECKING ON PT. PAIN. PT. DENIES PAIN BUT REPORTS FEELING WARM. HIS FACE IS FLUSHED AND SKIN WARM. TEMP. IS 101.1. PICCO DRESSING IS CDI. WILL CONTINUE TO MONITOR.
--- NOTE | 2021-02-03 18:07 | NUR ---
PATIENT IS HERE FOR RIGHT KNEE INFECTION AFTER KNEE SURGERY. PICCO DRESSING CDI AND HEMOVAC REMOVED TODAY. HE IS TOE TOUCH WITH FWW SBA. HIS TEMP. WAS 101.1F AT 1700 BUT DECREASED TO 99.1 AT 1800. HERECEIVED 2X 5MG OXYCODONE FOR PAIN TODAY AND PAIN WELL CONTROLLED. PLAN IS TO DC TO HOME TOMORROW WITH ABX. LT. IV DC'D DUE TO ROTATION SCHEDULE. PICC HEP.LOCKED AND FLUSHES/ RETURNS BLOOD.
--- NOTE | 2021-02-03 21:02 | NUR ---
pt in bed, room air, coop with assessment. R PICC line patent. iv abx infusing. lungs clear bilat. abd rash pinpoint pink over area below breasts area, abd and l flank. Back red, warm to touch. face and neck red colored as usual. Back and abd rash was clear this am when this RN did assessment . no c/o itching. Received Benadryl scheduled. pt aware to let RN know if increased discomofrt from itching. temp 100.5, received Tylenol 500mg, encouraged to use IS which is at bedside. stated understanding. R knee edema eber wound vac dressing patent, green light flashing. R knee brace in place, gale hose and heel protectors bilat, scds L leg. Medicated with Oxycodone 5mg po c/o 5/10 R knee pain. tolerating fluids well, no emesis. at bedside. abd
--- NOTE | 2021-02-03 22:30 | NUR ---
PATIENT TEMP RETAKEN PER RN REQUEST. RN NOTIFID OF CURRENT TEMP. CALL LIGHT IN REACH. PATIENT DENIES ANY FUTHER NEEDS. GUEST IN ROOM.
--- NOTE | 2021-02-03 22:51 | NUR ---
RESTING, NO FURTHER C/O PAIN. WILL RECHECK TEMP AGAININ 2 HOURS. TOLERATING FLUIDS WELL, CALL LIGHT AT HANDS REACH. INROOM
--- NOTE | 2021-02-03 23:58 | NUR ---
IN TO EMPTY URINAL FOR PT, NO FURTHER NEEDS
--- NOTE | 2021-02-04 01:32 | NUR ---
Resting, eys closed, no distress, cryocuff to R knee area. call light at bedside. rooming in
--- NOTE | 2021-02-04 02:53 | NUR ---
Resting, no ditress, on room air, R knee brace in plce, cryocuff. call light and fluids at bedside
--- NOTE | 2021-02-04 04:05 | NUR ---
PT REPORTS NAUSEA, PRN NAUSEA MED PROVIDED, NO OTHER NEEDS. CALL LIGHT IN REACH.
--- NOTE | 2021-02-04 05:15 | NUR ---
BC obtained from R picc line and L arm. by this RN and peripheral site by satellite installation technician. Procedure explained to pt. stated understanding. Bhargav 98.6 (oral) at this time. decreaed redness of face noted. pt drowsy, awakes easily, goes back to sleep. no c/o itching. one bedcover returned to pt. as earlier bedspread and xtra blanket were removed and room temp decreased to 70. Pt worked on IS several times earlier.
--- NOTE | 2021-02-04 05:19 | NUR ---
Pt in bed, awakes easily, on room air, lungs clear. Pinpoint pink rash noted below breast around abd and above pubic area,. was on L lateral side earlier on shift, this last one more clear at this time. abd rash no changes. Back area below neck red, warm to touch, non raised rash present at begining of shift, no change. no c/o itching. Received schedule 50mg Benadryl, no SOB or other discomfort. Pt on IV Rocephin abx. Pt temp temp ranging from 100.5 to 98.6 at this time. BC ordered and sent to lab.. R knee edema, YAZAN dressing in place, R knee brace, gale hose, heel protectors bilat, SCD L leg. medicated x1 with Oxycodone with good pain control. Has slept. voiding QS. c/o feeling nauseated mid shift, medicated with Zofran, effective. no further episode. in room.
--- NOTE | 2021-02-04 07:45 | NUR ---
REPORT RECEIVED FROM NIGHT RN AND PT. CARE RESUMED. PT. IS ALERT AND ORIENTED. HIS MOOD SEEMED CHANGED TODAY. WHEN ASKED, HE REPORTS FEELING "DOWN" DUE TO LENGTH OF STAY AT THE HOSPITAL, RETURNIG RASH, AND FEVER. DISCUSSED CONCERNS WITH HIM AND HIS . PICCO DRESSING IS CDI AND FLASHING GREEN. BRACE, EDIE HOSE, CRYO CUFF IN PLACE. EDEMA RLE IS +1. PT. DENIES PAIN AND NAUSEA. AFEBRILE. LUNGS CLEAR THROUGHOUT. PICC FLUSHES WELL, HAS BLOOD RETURN . HEP. LOCKED. DISCUSSED POC AND PT LEFT RESTING WITH AT BEDSIDE.
--- NOTE | 2021-02-04 12:19 | NUR ---
THIS MORNING GOT HIM AND HIS ANOTHER CUP OF COFFEE. AND ALSO WASHED HIS HAIR WITH A SHAPOO CAP. HE WAS VERY PLEASED. ALSO CHANGED HIS BED LINENS.
--- NOTE | 2021-02-04 12:22 | NUR ---
WILL SET SOME TOWELS AND WASH CLOTHS OUT AND ALSO A CLEAN GOWN.
--- NOTE | 2021-02-04 13:59 | NUR ---
PT. REPORTS 7/10 PAIN IN RIGHT KNEE WHEN AMBULATING. OXYCODONE ADMIN. YAZAN DRESSING ON RT. KNEE CDI AND FLASHING GREEN. LEGS ELEVATED. EDEMA IN RLE REMAINS UNCHANGED. RASH STILL PRESENT ON LOWER BACK AND PT. REPORTS ITCHING. TEMP. AT 98.1F. SON PRESENT IN THE ROOM. PT. DENIES FURTHER NEED.
--- NOTE | 2021-02-04 18:08 | NUR ---
YAZAN DRESSING ON RT. KNEE IS C/D/I AND FLASHING GREEN. DISTRICT REPRESENTATIVE REPORTS TEMP. 100.8F. PT. DENIES CHILLS AND IS SLIGHTLY DIAPHORETIC. WILL CONTINUE TO MONITOR. HE DENIES PAIN AND LEFT RESTING WITH AT BEDSIDE.
--- NOTE | 2021-02-04 20:02 | NUR ---
hob elevated, on room air, talking in cell phone, no c/o pain or sob. in room
--- NOTE | 2021-02-04 21:39 | NUR ---
Pt awake, watching tv. medicated with Oxycodone 5mg po c/o 02/06 R knee pain. R knee YAZAN wound vac dressing in place CDI, green flashing light, knee brace and cryocuff in place, tedhose and heel protectors in place. much improved edema t knee area. 2+ at ankles and feet but much improved. R PICC line patent, Rocephin ivx infusing. Barely there pink rash over left abd side, more pink on R abd side. [place]-red rash on back much improved, noted from neck to mid upper back, lower back no rash noted. tolerating fluids and diet well, voiding QS. Call light at hands reach. in room
--- NOTE | 2021-02-04 23:40 | NUR ---
resting, no ditress, no further c/o pain, awakes easily. call light at hands reach, cryocuff to R knee, YAZAN dressing intact
--- NOTE | 2021-02-04 23:46 | NUR ---
CALL LIGHT ON. pt REQUESTED THAT HIS URINAL BE EMPTIED AND HIS TEMPERATURE BE TAKEN. PRIMARY RN UPDATED
--- NOTE | 2021-02-05 02:44 | NUR ---
Resting, eys closed, no distress
--- NOTE | 2021-02-05 05:41 | NUR ---
Pt on room air, R arm PICC line patent. much improved rash on back and abd. Was medicated with Oxycodone X2 per R knee pain. R knee decreaed edema, knee brace, eber dressing gale hose,cryofuff in place, good CMS. good pain relief. highest temp at begining of shift was 99.3, encouraged to use IS, semireceptive. Pt still receiving IV Rocephin and Levaquin po. Voiding QS. uses call light, tolerating fluids and iet well. at bedside
--- NOTE | 2021-02-05 06:14 | NUR ---
afebrile, coop, medicated with Tylenol per 4/10 R knee pain. R abd and upper back rash much improved.
--- NOTE | 2021-02-05 08:00 | NUR ---
REPORT RECEIVED FROM NIGHT RN AND PT. CARE RESUMED. PT. IS ALERT AND ORIENTED, EATING BREAKFAST. LUNGS CLEAR THROUGHOUT AND BOWEL TONES ACTIVE. PICC FLUSHED AND RETURNS BLOOD, HEP. LOCKED. YAZAN DRESSING ON R. KNEE IS C/D/I AND FLASHING GREEN. +1 EDEMA PRESENT IN RT KNEE. FAINT RASH ON LOWER LEFT BACK. PT. REPORTS MODERATE PAIN THAT IS SHARP WITH MOVEMENT. OXYCODONE ADMIN. DISCUSSED POC AND PT. LEFT RESTING IN CHAIR WITH .
--- NOTE | 2021-02-05 15:21 | NUR ---
this rn in pts room to do pts afternoon assessment. pt states that today is one of the first days since he has been in the hospital that he is feeling much better, more like himself. pt states that his pain is 6/10 from movement and gets much worse when he does move.
--- NOTE | 2021-02-05 19:27 | NUR ---
PATIENT WOULD LIKE TO TAKE A SHOWER TONIGHT. I JUST NEED TO WRAP HIS PICC LINE. GOING TO GO DO IT NOW.
--- NOTE | 2021-02-05 19:35 | NUR ---
I WENT IN TO SEE IF HE WOULD LIKE LIKE ME TO WRAP HIS PICC LINE SO HE COULD TAKE A SHOWER. SAID HE CHANGED HIS MIND. AND HE WAS SLEEPING.
--- NOTE | 2021-02-05 20:34 | NUR ---
coop with assessment, on room air. rash barely perceptible abd. all gone from back. edema R knee improving, eber dressing in place. knee brace, gale hose. edema at ankles. good cms. voiding Qs, tolerating fluids. R arm PICC line infusing IV abx. tolerating well. Medicated with Oxycodone 10mg po. Temp 99.1 Tylenol 500mg po given on requests. encouraged to use IS semireceptive. repositions self inbed, at bedside
--- NOTE | 2021-02-06 00:27 | NUR ---
awakes easily . temp 98.0, uses urinal, voiding qs, call light and fluids at bedside. Jame brace/YAZAN dressing cryocuff R knee
--- NOTE | 2021-02-06 03:44 | NUR ---
resting, no distress, call light and fluids at bedside
--- NOTE | 2021-02-06 05:58 | NUR ---
PATIENT RESTING IN BED WHEN THIS MICROSYSTEMS ENGINEER ENTERED ROOM. VITAL AND I&O COMPLETED. PATIENT STATES "MY PAIN WOKE ME UP FROM TIME TO TIME DURING THE NIGHT". RN CHARISSA NOTIFIED. CRYO ICE REFRESHED. PATIENT DENIES ANY FUTHER NEEDS. CALL LIGHT IN REACH. CONTINUES TO SLEEP IN ROOM.
--- NOTE | 2021-02-06 05:59 | NUR ---
Pt slept most of this shift. On room air. R arm picc line patent. much improved rash over back and abd barely perceptible. R knee and foot edema improved. YAZAN dressing R knee and knee brace in place, cryocuff,tedhose bilat in place. was medicated with Oxycodone 10mg po per pain, Tylenol x1 per temp 99.1, afebrile at this time. tolerating fluids and diet well. in room. Pt staed he may be dc'd home today
--- NOTE | 2021-02-06 10:10 | NUR ---
IN TO GIVE MORNING MEDICATIONS AND COMPLETE ASSESSMENT. HELD SENNA AND COLACE PER PT REQUEST, STATES HE IS HAVING NO TROUBLE W/ BM'S (HAS HAD 2 ALREADY THIS AM). LUNG SOUNDS CLEAR BUL, DIMINISHED BLL. DENIES SOB. BOWEL TONES ACTIVE. PT DENIES NAUSEA. RIGHT KNEE PAIN 5/10, GIVEN MOTRIN. PT IS SBA W/ FWW, RLE REMAINS TOE-TOUCH, BRACE ON AT ALL TIMES. YAZAN DRESSING REMAINS C,D,I, LIGHT FLASHING GREEN TO INDICATE FUNCTIONING. EDIE HOSE IN PLACE. EDEMA IN BLE MUCH IMPROVED, RLE TRACE SWELLING. PT SITTING UP IN CHAIR THIS AM FOR BREAKFAST, TOLERATING FOOD WELL. STATES PT HAD RASH ON LEFT SHOULDER/BACK THIS AM AND SHE APPLIED HYDROCORTISONE CREAM, NO RASH NOTED AT THIS TIME. PT REQUESTING 1 TAB OXYCODONE PRIOR TO WORKING WITH PHYSICAL THERAPY. ALICIA PICC HEPARIN LOCKED. INSTRUCTED TO CALL FOR FURTHER NEEDS. CALL LIGHT IN REACH.
--- NOTE | 2021-02-06 12:00 | NUR ---
ORDERS FROM DR MARCH TO REMOVE YAZAN DRESSING AND PLACE ACTICOAT PRIOR TO PT DC.
[2021-02-06] MEDS ORDERED: CEFTRIAXONE2 G1 IV (13:02)
[2021-02-06] MEDS ORDERED: LEVOFLOXACIN750 MG PO (13:03)
[2021-02-06] MEDS ORDERED: DIPHENHYDRAMINE25 M1 PO (13:03)
[2021-02-06] MEDS ORDERED: OXYCODONE HCL5 MG PO (13:04)
[2021-02-06] MEDS ORDERED: BENAZEPRIL HCL40 MG PO (13:04)
--- NOTE | 2021-02-06 13:10 | NUR ---
CONNECTED WITH PT'S RAKEL IN [facility]. SHE IS HOPEFUL FOR DC TODAY, BUT FEELS A LONG ROAD AHEAD. STRESS IS BEGINNING TO TAKE A TOLL, BUT EXPRESSED GRATITUDE TO HER SCIENTOLOGIST AND FAMILY FOR ALL THEIR HELP. ENCOURAGED HER TO JUST LOOK AND WORK FOR TODAY, CELEBRATE ANY VICTORY, SHE ACKNOWLEDGED. RAKEL ALSO THANKED ALL THE STAFF FOR CARE RECEIVED FROM [facility]. WILL FOLLOW NEEDED
--- NOTE | 2021-02-06 13:35 | NUR ---
PER DR. RICHMOND PATIENT WILL NEED TO DISCHARGE WITH ONGOING ANTIBIOTIC INFUSIONS. ORDER FOR CEFTRIAXONE RECVD FROM DR. RICHMOND. RX AND MEDICAL RECORDS FAXED TO [facility].
--- NOTE | 2021-02-06 13:44 | NUR ---
SPOKE WITH GRETCHEN AT [facility], HE STATES HE WILL WATCH FOR PATIENTS INFORMATION AND ORDER. ONCE THE ORDER HAS BEEN RECVD [employer] WILL VERIFY INSURANCE COVERAGE AND CALL BACK WITH A DETERMINATION.
--- NOTE | 2021-02-06 14:00 | NUR ---
[facility] DOUBLE BACKER IN TO GIVEN ROCEPHIN INFUSION EARLY PER ORDERS FROM DR RICHMOND SO PT CAN DISCHARGE. PT REQUESTING PAIN MEDICATION PRIOR TO DEPARTURE. GIVEN 5 MG OXYCODONE AND 500 MG TYLENOL W/ AFTERNOON GABAPENTIN DOSE.
--- NOTE | 2021-02-06 14:30 | NUR ---
ROCEPHIN INFUSION COMPLETE, PICC HEPARIN LOCKED. PT TO RETURN TO DAY SURGERY TOMORROW AT 2 PM FOR OUTPATIENT ABX. DIVYA FROM PHARMACY IN TO SEE PT NOW.
--- NOTE | 2021-02-06 15:30 | NUR ---
SPOKE WITH MANDO PATIENT CARE COORDINATIOR AT [facility], SHE STATES INFUSION IS PENDING BENEFIT DETERMINATION. YONI STATES THAT THEY DO NOT HAVE A NURSE IN THE [facility] AREA AT THIS TIME AND ARE REQUESTING HELP FROM A LOCAL HOME HEALTH [facility]. SINCE PATIENT IS NOT HOME BOUND AT THIS TIME DR. RICHMOND TO WRITE ORDER FOR ABX TEACHING AND PICC LINE DRSG THROUGH [facility] DEPARTMENT. YONI REQUESTING TO CONSULT WITH THE PATIENT, PHONE CALL TRANSFERRED TO PATIENT ROOM.
--- NOTE | 2021-02-06 15:30 | NUR ---
YAZAN DRESSING REMOVED AND ACTICOAT DRESSING PLACED TO RIGHT KNEE SURGICAL INCISION. NO CHANGES TO WOUND NOTED. DARCIE WRAP AROUND RLE OVER ACTICOAT. PICC LINE DRESSING CHANGED TO ALICIA, 5 CM EXPOSED AND ALICIA CIRCUMREFERENCE 31 CM. PT GIVEN DC INSTRUCTIONS AND REVIEWED W/ PRESENT. F/U APPT TIMES GIVEN. PT AND VERBALIZED UNDERSTANDING.
--- NOTE | 2021-02-06 15:34 | NUR ---
PER YONI PATIENT DROP HAMMER SETTER UP WITH [facility] PATIENT IS STILL CONSIDERING OUTPATIENT VS IN HOME INFUSION THERAPY. YONI STATES THAT THE PATIENT WOULD LIKE TO WAIT FOR THE FINAL BENEFIT DETERMINATION AND COST DETERMINATION FOR IN HOME INFUSIONS BEFORE MAKING A DECISION. YONI STATES SHE WILL CONTACT THE PATIENT WITH THE FINAL DETERMINATION, THEN CONCTACT CASE MANAGEMENT WITH PATIENT DECISION. I ADVISED YONI IF THE PATIENT DOES DECIDE TO COMPLETE OUT PATIENT ABX THERAPY CASE MANAGEMENT STAFF WILL HELP FACILITATE.
[2021-02-06] MEDS ORDERED: GABAPENTIN300 MG PO (15:36)
== END 2021-02-06 16:20 | disposition home or self-care (01) | DRG 466 ==
LOC: ED 17:33 → CCU 19:04 → MS 01-31 15:36
PROVIDERS: Specialist; ADMIT Internal Medicine; ATTEND Internal Medicine
PROC: 0S9C3ZX Drainage of Right Knee Joint, Percutaneous Approach, Diagnostic (ICD-10-PCS; 2021-01-29)
PROC: 0SRC0EZ Replacement of Right Knee Joint with Articulating Spacer, Open Approach (ICD-10-PCS; 2021-01-30)
PROC: 02HV33Z Insertion of Infusion Device into Superior Vena Cava, Percutaneous Approach (ICD-10-PCS; 2021-01-30)
PROC: 0SPC0JZ Removal of Synthetic Substitute from Right Knee Joint, Open Approach (ICD-10-PCS; principal; 2021-01-30 12:30)
DX: T84.53XA Infection and inflammatory reaction due to internal right knee prosthesis, initial encounter (principal); A40.0 Sepsis due to streptococcus, group A; R65.20 Severe sepsis without septic shock; A48.3 Toxic shock syndrome; N17.9 Acute kidney failure, unspecified; L03.115 Cellulitis of right lower limb; Z20.822 Contact with and (suspected) exposure to COVID-19; A46 Erysipelas; I10 Essential (primary) hypertension; E78.5 Hyperlipidemia, unspecified; I25.10 Atherosclerotic heart disease of native coronary artery without angina pectoris; T39.395A Adverse effect of other nonsteroidal anti-inflammatory drugs [NSAID], initial encounter; Z79.899 Other long term (current) drug therapy; Z79.1 Long term (current) use of non-steroidal anti-inflammatories (NSAID); Z95.1 Presence of aortocoronary bypass graft; Z79.82 Long term (current) use of aspirin
CPT/HCPCS: 01402; 36415; 71045; 80048; 80053; 80069; 80076; 81001; 82550; 82570; 82945; 83605; 83880; 84300; 84540; 85025; 85651; 85810; 86431; 87040; 87070; 87075; 87077; 87186; 87205; 89051; 89060; 93306; 93971; 94667; 94668; 94760; 97110; 97116; 97161; 99285-25; A9270; C1713; C1751; C9803; J0696; J0878; J1100; J1650; J1885; J1940; J2001; J2250; J2270; J2274; J2405; J2543; J2550; J2704; J2765; J3010; J3370; J3490; J7030; J7120; J7121; Q0163; U0003